=== PATIENT | male | born 1955 | race Two or more races ===

== ENCOUNTER 2017-02-12 20:37 | Emergency (ER) | payer MEDICAID ==
[2017-02-12 21:01] VITALS: BP 157/82; PULSE 86; RESP 20; TEMP 98; O2SAT 97
--- NOTE | 2017-02-12 21:04 | C.PDOC ---
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 Denies fever, chills, nausea or vomiting. Time Seen by Provider: 02/12/17 21:03 Chief Complaint (Nursing): Rib Injury History Per: Patient History/Exam Limitations: no limitations Onset/Duration Of Symptoms: Hrs Current Symptoms Are (Timing): Still Present Severity: Mild Pain Scale Rating Of: 3 Recent travel outside of the [place]: No Past Medical History Reviewed: Historical Data, Nursing Documentation, Vital Signs Vital Signs: Last Vital Signs Temp 98.0 F 02/12/17 20:57 Pulse 86 02/12/17 20:57 Resp 20 02/12/17 20:57 BP 157/82 H 02/12/17 20:57 Pulse Ox 97 02/12/17 21:21 - Medical History PMH: HTN, Malignancy (CLL) Surgical History: No Surg Hx - [facility] Procedures OTHER SKIN & SUBQ I D (06/22/13) Family History: States: No Known Family Hx - Social History Hx Tobacco Use: No Hx Alcohol Use: No Hx Substance Use: No - Immunization History Hx Tetanus Toxoid Vaccination: Yes Hx Influenza Vaccination: Yes Hx Pneumococcal Vaccination: Yes Review Of Systems Constitutional: Negative for: Fever, Chills Gastrointestinal: Negative for: Nausea, Vomiting Musculoskeletal: Positive for: Other (Right sided rib pain) Physical Exam - Physical Exam Appears: Non-toxic Skin: Warm, Dry Oral Mucosa: Moist Chest: Symmetrical, Tenderness (Right mid clavicular line, to palpation), No Ecchymosis, No Other (crepitus) Cardiovascular: Rhythm Regular, No Murmur Respiratory: No Rales, No Rhonchi, No Wheezing Gastrointestinal/Abdominal: Soft, No Tenderness Neurological/Psych: Oriented x3 ED Course And Treatment O2 Sat by Pulse Oximetry: 97 (Room air) Pulse Ox Interpretation: Normal - Radiology CXR: Interpreted by Me, Viewed By Me CXR Interpretation: No: Infiltrates, Fracture, Pnemothorax - Other Rad ribs X-Ray: Interpreted by Me Interpretation: no fx or dislocation Progress Note: X-ray of right ribs and chest ordered. Motrin administered. Medical Decision Making Medical Decision Making: Upon provider reevaluation patient is feeling better, is medically stable, and requires no further treatment in the ED at this time. Patient will be discharged home with Rx for naproxyn. Counseling was provided and all questions were answered regarding diagnosis and need for follow up with Dr Chiu. There is agreement to discharge plan. Return if symptoms persist or worsen. Disposition Counseled Patient/Family Regarding: Studies Performed, Diagnosis, Need For Followup, Rx Given - Disposition Referrals: Yoselyn Chiu MD [Staff Provider] - Disposition: HOME/ ROUTINE Disposition Time: 21:04 Condition: FAIR Prescriptions: Naproxen [Naprosyn] 1 tab PO BID PRN #25 tab PRN Reason: Pain Instructions: Thoracic Pain (ED), Chest Wall Pain (ED) - Clinical Impression Clinical Impression: Chest wall contusion - Scribe Statement The provider has reviewed the documentation as recorded by the Scribe Alex Madden All medical record entries made by the Scribe were at my direction and personally dictated by me. I have reviewed the chart and agree that the record accurately reflects my personal performance of the history, physical exam, medical decision making, and the department course for this patient. I have also personally directed, reviewed, and agree with the discharge instructions and disposition.
--- NOTE | 2017-02-13 09:01 | RAD ---
PROCEDURE: Chest and right ribs HISTORY: pain, hit ribs COMPARISON: April 23, 2016. TECHNIQUE: Frontal radiograph of the chest and multiple oblique radiographs of the right ribs were obtained. FINDINGS: RIGHT RIBS: No fracture or focal lesion visualized. LUNGS: Clear. PLEURA: No pneumothorax or pleural fluid. CARDIOVASCULAR: Normal sized heart. No pulmonary vascular congestion. OTHER FINDINGS: None. IMPRESSION: Unremarkable radiographs of the chest and right ribs. No right rib fracture.
--- NOTE | 2017-02-17 17:50 | CARD ---
APPROVED REPORT EKG Measurement Heart [id number] PA 170P68 [id number] <Conclusion> Normal sinus rhythm Normal ECG
== END 2017-02-12 22:02 | disposition home or self-care (01) ==
LOC: C.ER 20:37
DX: S20.211A Contusion of right front wall of thorax, initial encounter (principal); X50.9XXA Other and unspecified overexertion or strenuous movements or postures, initial encounter; Y92.810 Car as the place of occurrence of the external cause

== ENCOUNTER 2017-07-02 19:21 | Emergency (ER) | payer MEDICAID ==
[2017-07-02 19:52] VITALS: RESP 20; TEMP 97.9
[2017-07-02 20:47] LABS: BASO # 0.1 K/uL (0.0-0.2); BASO % 1.3 % (0.0-2.0); EOS # 0.3 K/uL (0.0-0.7); EOS % 3.5 % (0.0-4.0); HEMATOCRIT 35.2 % (35.0-51.0); LYMPH # 3.3 K/uL (1.0-4.3); LYMPH % 40.1 % (20.0-40.0); MEAN CELL VOLUME 88.7 fL (80.0-94.0); MEAN CORPUSCULAR HEMOGLOBIN 29.9 pg (27.0-31.0); MEAN CORPUSCULAR HGB CONC 33.7 g/dL (33.0-37.0); MONO # 0.6 K/uL (0.0-0.8); MONO % 7.8 % (0.0-10.0); NRBC % 0.1 % (0.0-2.0); RED CELL DISTRIBUTION WIDTH 14.6 % (11.5-14.5); WHITE BLOOD COUNT 8.2 K/uL (4.8-10.8)
[2017-07-02 20:56] LABS: CHLORIDE 96 mmol/L (98-107); POTASSIUM 4.2 mmol/L (3.6-5.2); SODIUM 131 mmol/L (132-148)
[2017-07-02 20:57] LABS: URINE BILIRUBIN NEGATIVE (NEGATIVE); URINE BLOOD NEGATIVE (NEGATIVE); URINE COLOR Colorless (YELLOW); URINE GLUCOSE (UA) 1+ mg/dL (Normal); URINE KETONE NEGATIVE (NEGATIVE); URINE LEUKOCYTE ESTERASE NEG Leu/uL (Negative); URINE PROTEIN NEGATIVE (NEGATIVE); URINE UROBILINOGEN NORMAL mg/dL (0.2-1.0)
[2017-07-02 20:58] LABS: GFR AFRICAN-AMERICAN > 60
[2017-07-02 20:59] LABS: ALB/GLOB RATIO 1.2 (1.0-2.1); ALKALINE PHOSPHATASE 64 U/L (38-126); ALT/SGPT 45 U/L (21-72); AST/SGOT 35 U/L (17-59); BILIRUBIN,TOTAL 0.5 mg/dL (0.2-1.3); BLOOD UREA NITROGEN 16 mg/dL (9-20); CALCIUM 9.5 mg/dl (8.6-10.4); CARBON DIOXIDE 25 mmol/L (22-30); GLUCOSE,RANDOM 196 mg/dL (75-110); TOTAL PROTEIN 8.1 g/dL (6.3-8.3)
[2017-07-02 21:25] VITALS: BP 145/73; PULSE 81; O2SAT 98
--- NOTE | 2017-07-02 21:33 | CT ---
EXAM: CT Head Without Intravenous Contrast EXAM DATE/TIME: 07/02/2017 8:02 PM CLINICAL HISTORY: 61 years old, male; Condition or disease; Headache; Additional info: R/O ich TECHNIQUE: Axial computed tomography images of the head/brain without intravenous contrast. All CT scans at this facility use one or more dose reduction techniques, viz.: automated exposure control; ma/kV adjustment per patient size (including targeted exams where dose is matched to indication; i.e. head); or iterative reconstruction technique. Coronal and sagittal reformatted images were created and reviewed. COMPARISON: There are no prior studies for comparison. FINDINGS: Brain: Ventricles are normal in size and configuration. There is no midline shift. There are no intra-axial or extra-axial mass lesions or areas of hemorrhage. There are no abnormal fluid collections. Person-white differentiation is maintained. Ventricles: See above. Bones: Cranial vault is intact. Soft tissues: unremarkable Sinuses: There is no acute sinusitis. Ears and mastoids: Middle ears and mastoids are unremarkable Orbits: Orbital contents are unremarkable. IMPRESSION: No acute intracranial abnormality, no bleed
--- NOTE | 2017-07-02 23:39 | C.PDOC ---
History Of Present Illness 61 year old male who presents to the ER with a complaint of dizziness since this morning. Patient has a Hx of leukemia and is on oral chemotherapy. Denies change in vision, chest pain, SOB, fever, or neck stiffness. Chief Complaint (Nursing): Dizziness/Lightheaded History Per: Patient History/Exam Limitations: no limitations Onset/Duration Of Symptoms: Hrs Current Symptoms Are (Timing): Still Present Activity At Onset Of Symptoms: Other (Not known) Seizure Or Post-ictal Symptoms: None Possible Causative Factor(s): Other (Not known) Fall Associated With With Symptoms: No Recent travel outside of the [place]: No Past Medical History Reviewed: Historical Data, Nursing Documentation, Vital Signs Vital Signs: Last Vital Signs Temp 97.9 F 07/02/17 19:49 Pulse 81 07/02/17 21:24 Resp 20 07/02/17 21:24 BP 145/73 07/02/17 21:24 Pulse Ox 98 07/02/17 23:44 - Medical History PMH: HTN, Malignancy (CLL) Surgical History: No Surg Hx - [facility] Procedures OTHER SKIN & SUBQ I D (06/22/13) Family History: States: Unknown Family Hx - Social History Hx Tobacco Use: No Hx Alcohol Use: No Hx Substance Use: No - Immunization History Hx Tetanus Toxoid Vaccination: Yes Hx Influenza Vaccination: Yes Hx Pneumococcal Vaccination: Yes Review Of Systems Constitutional: Negative for: Fever, Chills Eyes: Negative for: Vision Change Cardiovascular: Negative for: Chest Pain Respiratory: Negative for: Shortness of Breath Musculoskeletal: Negative for: Other (Neck stiffness) Physical Exam - Physical Exam Appears: Non-toxic, No Acute Distress Skin: Normal Color, Warm, Dry Head: Atraumatic, Normacephalic Eye(s): bilateral: Normal Inspection, PERRL, EOMI Oral Mucosa: Moist Neck: Normal, Supple Chest: Symmetrical, No Tenderness Cardiovascular: Rhythm Regular Respiratory: Normal Breath Sounds, No Rales, No Rhonchi, No Wheezing Gastrointestinal/Abdominal: Soft, No Tenderness Neurological/Psych: Oriented x3, Normal Speech, Normal Cognition, Normal Motor, Normal Sensation ED Course And Treatment - Laboratory Results Result Diagrams: 07/02/17 20:41 07/02/17 20:41 O2 Sat by Pulse Oximetry: 98 (Room air) Pulse Ox Interpretation: Normal Progress Note: CT head, blood work, CXR, and urinalysis ordered. Antivert and cozaar administered. Patient reports after the meclizine he feels better and states he will follow up with his PMD. Disposition - Disposition Referrals: Tenzin Romero, [Non-Staff] - Disposition: HOME/ ROUTINE Disposition Time: 21:44 Condition: IMPROVED Additional Instructions: Thank you for letting us take care of you today. Your provider was Dr. Lawson. You were treated for dizziness. The emergency medical care you received today was directed at your acute symptoms. If you were prescribed any medication, please fill it and take as directed. It may take several days for your symptoms to resolve. Return to the Emergency Department if your symptoms worsen, do not improve, or if you have any other problems. Please contact your doctor or call one of the physicians/clinics you have been referred to that are listed on the Patient Visit Information form that is included in your discharge packet. Bring any paperwork you were given at discharge with you along with any medications you are taking to your follow up visit. Our treatment cannot replace ongoing medical care by a primary care provider (PCP) outside of the emergency department. Thank you for allowing the [facility] team to be part of your care today. Follow up with your doctor tomorrow for a blood pressure check and further management. Prescriptions: Meclizine [Meclizine*] 25 mg PO Q6 PRN #20 tab PRN Reason: Dizziness Instructions: Vertigo (ED) Forms: [employer] (Japanese) - Clinical Impression Clinical Impression: Dizziness - Scribe Statement The provider has reviewed the documentation as recorded by the Scribchace Madden All medical record entries made by the Scribchace were at my direction and personally dictated by me. I have reviewed the chart and agree that the record accurately reflects my personal performance of the history, physical exam, medical decision making, and the department course for this patient. I have also personally directed, reviewed, and agree with the discharge instructions and disposition.
--- NOTE | 2017-07-03 08:38 | RAD ---
PROCEDURE: CHEST RADIOGRAPH, 1 VIEW HISTORY: r/o infiltrate COMPARISON: 02/12/2017 FINDINGS: LUNGS: Mild venous congestion. Patchy increased markings at the left lung base with trace left pleural effusion. PLEURA: As above. CARDIOVASCULAR: Cardiomegaly. OSSEOUS STRUCTURES: Degenerative changes in the spine and shoulders. VISUALIZED UPPER ABDOMEN: Normal. OTHER FINDINGS: None. IMPRESSION: Patchy increased markings at the left lung base which may represent underlying infiltrate. Associated trace left pleural effusion.
--- NOTE | 2017-07-03 19:15 | CARD ---
APPROVED REPORT EKG Measurement Heart [id number] [place] 194P62 [id number] <Conclusion> Normal sinus rhythm Normal ECG
== END 2017-07-02 22:25 | disposition home or self-care (01) ==
LOC: C.ER 19:21
DX: R42 Dizziness and giddiness (principal); I10 Essential (primary) hypertension

== ENCOUNTER 2017-10-09 13:56 | Emergency (ER) | payer MEDICAID ==
[2017-10-09 14:41] VITALS: RESP 18
--- NOTE | 2017-10-09 15:01 | C.PDOC ---
History Of Present Illness 62 y/o male with history of CLL presents to ED with complaints of sob, cough and "shivering" since yesterday. He saw when symptoms started who prescribed TAmiflu and instructed to come to ER if symptoms persist or worsen. Patient states he is on chemo daily. Pt took Tylenol with no improvement. Flu vaccine is up to date. Denies chest pain, loc, syncope, headache, or other associated symptoms. Time Seen by Provider: 10/09/17 14:47 Chief Complaint (Nursing): Fever History Per: Patient History/Exam Limitations: no limitations Onset/Duration Of Symptoms: Days Current Symptoms Are (Timing): Still Present Past Medical History Reviewed: Historical Data, Nursing Documentation, Vital Signs Vital Signs: Last Vital Signs Temp 98.1 F 10/09/17 18:19 Pulse 78 10/09/17 18:19 Resp 18 10/09/17 18:19 BP 130/78 10/09/17 18:19 Pulse Ox 97 10/09/17 18:19 - Medical History PMH: HTN, Malignancy (CLL) - [facility] Procedures OTHER SKIN & SUBQ I D (06/22/13) Family History: States: No Known Family Hx - Social History Hx Tobacco Use: No Hx Alcohol Use: No Hx Substance Use: No - Immunization History Hx Tetanus Toxoid Vaccination: Yes Hx Influenza Vaccination: Yes Hx Pneumococcal Vaccination: Yes Review Of Systems Constitutional: Positive for: Chills Respiratory: Positive for: Cough Gastrointestinal: Negative for: Nausea, Vomiting Skin: Negative for: Rash Neurological: Negative for: Weakness, Numbness Physical Exam - Physical Exam Appears: Non-toxic, No Acute Distress, Other (pt speaking in full sentences) Skin: Warm, Dry, No Rash Head: Atraumatic, Normacephalic, Swelling (facial swelling noted, patient reports secondary to chemo which hes had for "years") Eye(s): bilateral: Normal Inspection, EOMI Nose: Normal Oral Mucosa: Moist Throat: Normal, No Erythema, No Exudate, No Drooling Neck: Normal ROM, Supple Chest: Symmetrical Cardiovascular: Rhythm Regular Respiratory: Normal Breath Sounds, No Accessory Muscle Use, No Rales, No Rhonchi , No Wheezing Gastrointestinal/Abdominal: Soft, No Tenderness, No Guarding, No Rebound Extremity: Normal ROM, Capillary Refill (<2 seconds) Neurological/Psych: Oriented x3 ED Course And Treatment - Laboratory Results Result Diagrams: 10/09/17 15:54 10/09/17 15:54 ECG: Interpreted By Me, Viewed By Me ECG Rhythm: Sinus Rhythm O2 Sat by Pulse Oximetry: 96 (RA) Pulse Ox Interpretation: Normal Progress Note: On re evaluation patient states he feels better, states symptoms have improved and denies sob, chest pain, palpitations. Patient was offered admission for further evaluation and refused states he feels better and is asymptomatic. Discussed with Dr. Chiu and agrees with plan of discharge and advised patient continue Tamaflu given and will follow up with patient outpatient. Case discussed with Dr Gomez, agreed upon plan and discharge. Disposition - Disposition Referrals: Yoselyn Chiu MD [Staff Provider] - Disposition: HOME/ ROUTINE Disposition Time: 18:02 Condition: STABLE Additional Instructions: Follow up with your primary medical doctor or clinic in 2-5 days for further evaluation. Return to the emergency department at any time if symptoms persist or worsen. Instructions: Viral Syndrome (ED) Forms: [employer] (Swiss) - Clinical Impression Clinical Impression: URI (upper respiratory infection), Influenza-like illness - PA / VP RESEARCH / Resident Statement MD/DO has reviewed & agrees with the documentation as recorded. - Scribe Statement The provider has reviewed the documentation as recorded by the Scribchace Crandall All medical record entries made by the Scribe were at my direction and personally dictated by me. I have reviewed the chart and agree that the record accurately reflects my personal performance of the history, physical exam, medical decision making, and the department course for this patient. I have also personally directed, reviewed, and agree with the discharge instructions and disposition.
[2017-10-09] MEDS ORDERED: Albuterol 0.083% Inhal Sol (2.5 mg/3 mL) UD IH STA (15:19)
[2017-10-09 15:58] LABS: BASO # 0.1 K/uL (0.0-0.2); BASO % 0.8 % (0.0-2.0); EOS # 0.2 K/uL (0.0-0.7); EOS % 2.7 % (0.0-4.0); HEMOGLOBIN 10.9 g/dL (12.0-18.0); LYMPH # 3.7 K/uL (1.0-4.3); LYMPH % 40.3 % (20.0-40.0); MEAN CELL VOLUME 88.9 fL (80.0-94.0); MEAN CORPUSCULAR HEMOGLOBIN 30.3 pg (27.0-31.0); MEAN CORPUSCULAR HGB CONC 34.1 g/dL (33.0-37.0); MONO # 0.5 K/uL (0.0-0.8); MONO % 5.8 % (0.0-10.0); NEUT # 4.6 K/uL (1.8-7.0); NEUT % 50.4 % (50.0-75.0); NRBC % 0.1 % (0.0-2.0); RBC 3.6 Mil/uL (4.40-5.90); RED CELL DISTRIBUTION WIDTH 14.8 % (11.5-14.5); WHITE BLOOD COUNT 9.1 K/uL (4.8-10.8)
[2017-10-09] MEDS ORDERED: Albuterol 0.083% Inhal Sol (2.5 mg/3 mL) UD ONE (16:02)
[2017-10-09 16:06] LABS: INR 1.2; PROTHROMBIN TIME 13.8 SECONDS (9.7-12.2)
[2017-10-09 16:20] LABS: ALB/GLOB RATIO 1.2 (1.0-2.1); ALBUMIN 4.1 g/dL (3.5-5.0); ALT/SGPT 38 U/L (21-72); AST/SGOT 41 U/L (17-59); BLOOD UREA NITROGEN 23 mg/dL (9-20); CALCIUM 8.8 mg/dl (8.6-10.4); GFR AFRICAN-AMERICAN > 60; GFR NON-AFRICAN AMERICAN 52
--- NOTE | 2017-10-09 16:22 | RAD ---
HISTORY: SOB COMPARISON: 07/02/2017 TECHNIQUE: Chest PA and lateral FINDINGS: LUNGS: Central pulmonary venous congestion and coarse bilateral symmetrical interstitial lung marking prominence suggested. Findings appear similar. Minimal left patchy infiltrate ring left inferolateral pleural effusion/pleural thickening - renoted. PLEURA: Left inferolateral pleural effusion/thickening probably slightly increased. Contiguous patchy infiltrate and/or atelectasis here renoted. No pneumothorax CARDIOVASCULAR: Mild cardiomegaly. Central pulmonary venous congestion suggested OSSEOUS STRUCTURES: No significant abnormalities. VISUALIZED UPPER ABDOMEN: Normal. OTHER FINDINGS: None. IMPRESSION: Persistent left inferolateral pleural effusion/thickening with patchy minimal infiltrate and/or atelectasis persisting here as well. Mild cardiomegaly with central pulmonary venous congestion-similar. Concomitant chronic interstitial lung disease per coarse prominent interstitial lung markings - also in needs to be considered
[2017-10-09 16:26] LABS: B-TYPE NATRIURETIC PEPTIDE 177 pg/mL (0-900); CK-MB 1.03 ng/mL (0.0-3.38)
[2017-10-09] MEDS ORDERED: Iodixanol 320 MG/ML 100 ML BOTTLE IV ONE (17:23)
--- NOTE | 2017-10-09 17:50 | CT ---
PROCEDURE: CT Chest with contrast (Pulmonary Angiogram) HISTORY: Shortness of breath. COMPARISON: None available. TECHNIQUE: Axial computed tomography images were obtained of the chest in the pulmonary arterial phase of enhancement. Coronal and sagittal reformatted images were created and reviewed. Intravenous contrast dose: 100 cc Visipaque 320 Mean Hounsfield unit values in the main pulmonary artery: 157.12 Radiation dose: Total exam DLP = 531.55 mGy-cm. This CT exam was performed using one or more of the following dose reduction techniques: Automated exposure control, adjustment of the mA and/or kV according to patient size, and/or use of iterative reconstruction technique. FINDINGS: PULMONARY ARTERIES: No major/ central pulmonary emboli. Nondiagnostic assessment of qualitatively and quantitatively beyond segmental branches. AORTA: No acute findings. No thoracic aortic aneurysm. LUNGS: Prominent pulmonary markings compatible with lower airways disease, bronchitis. No discrete infiltrates PLEURAL SPACES: Trace left pleural effusion last HEART: Unremarkable. No cardiomegaly. No significant pericardial effusion. LYMPH NODES: No lymphadenopathy. BONES, CHEST WALL: Unremarkable. No fracture or destructive lesion OTHER FINDINGS: Unremarkable. IMPRESSION: No large semi of central pulmonary emboli. Limitations of the current examination: Nondiagnostic assessment beyond the segmental branches. Additional benign and/or incidental findings described above.
[2017-10-09 18:20] VITALS: BP 130/78; PULSE 78; TEMP 98.1
--- NOTE | 2017-10-10 16:07 | CARD ---
APPROVED REPORT EKG Measurement Heart [id number] [place] 180P52 [id number] <Conclusion> Normal sinus rhythm Normal ECG
[2017-10-13 22:36] VITALS: O2SAT 96
== END 2017-10-09 18:23 | disposition home or self-care (01) ==
LOC: C.ER 13:56
DX: J11.1 Influenza due to unidentified influenza virus with other respiratory manifestations (principal); I10 Essential (primary) hypertension; Z85.6 Personal history of leukemia
CPT/HCPCS: 71046; 71275; 80053; 82550; 82553; 83880; 84484; 85025; 85378; 85610; 85730; 87804; 93005; 94150; 94640; 99285; Q9967

== ENCOUNTER 2018-01-15 02:13 | Emergency (ER) | payer MEDICAID ==
--- NOTE | 2018-01-15 02:47 | C.PDOC ---
History Of Present Illness Patient presents to the ER stating he felt like his blood pressure was high. Patient took his blood pressure at home and noticed is was 203; he also reports his doctor changed his blood pressure medications last month. Patient notes he has occasional palpitations, however, denies palpitations at this time, chest pain, or SOB. Time Seen by Provider: 01/15/18 02:46 Chief Complaint (Nursing): High Blood Pressure History Per: Patient History/Exam Limitations: no limitations Onset/Duration Of Symptoms: Hrs Current Symptoms Are (Timing): Still Present Associated Symptoms: denies: Chest Pain, Dyspnea, Dizziness, Blurred Vision, Focal Weakness, Headache Quality Of Symptoms: Asymptomatic Severity: Mild Pain Scale Rating Of: 3 Exacerbating Factor(s): Pos: None Recent travel outside of the [place]: No Past Medical History Reviewed: Historical Data, Nursing Documentation, Vital Signs Vital Signs: Last Vital Signs Temp 97.8 F 01/15/18 02:24 Pulse 98 H 01/15/18 02:24 Resp 16 01/15/18 02:24 BP 206/94 H 01/15/18 02:34 Pulse Ox 99 01/15/18 03:44 - Medical History PMH: HTN, Malignancy (CLL) - [facility] Procedures OTHER SKIN & SUBQ I D (06/22/13) Family History: States: No Known Family Hx - Social History Hx Tobacco Use: No Hx Alcohol Use: No Hx Substance Use: No - Immunization History Hx Tetanus Toxoid Vaccination: Yes Hx Influenza Vaccination: Yes Hx Pneumococcal Vaccination: Yes Review Of Systems Constitutional: Negative for: Fever, Chills Cardiovascular: Negative for: Chest Pain, Palpitations Respiratory: Negative for: Shortness of Breath Gastrointestinal: Negative for: Nausea, Vomiting Physical Exam - Physical Exam Appears: Non-toxic Skin: Warm, Dry Head: Normacephalic Oral Mucosa: Moist Chest: Symmetrical, No Tenderness Cardiovascular: Rhythm Regular Respiratory: No Rales, No Rhonchi, No Wheezing Gastrointestinal/Abdominal: Soft, No Tenderness, Other (Obese) Neurological/Psych: Oriented x3 ED Course And Treatment - Laboratory Results Result Diagrams: 01/15/18 03:27 01/15/18 03:27 ECG: Interpreted By Me, Viewed By Me ECG Rhythm: Sinus Rhythm (97), Nonspecific Changes O2 Sat by Pulse Oximetry: 99 Pulse Ox Interpretation: Normal - Radiology CXR: Interpreted by Me, Viewed By Me CXR Interpretation: Yes: Cardiomegaly. No: Infiltrates, Fracture, Pnemothorax Progress Note: EKG, blood work, CXR, and urinalysis ordered. Reevaluation Time: 04:36 Reassessment Condition: Improved Disposition Counseled Patient/Family Regarding: Studies Performed, Diagnosis, Need For Followup - Disposition Referrals: Yoselyn Chiu MD [Staff Provider] - Disposition: HOME/ ROUTINE Disposition Time: 02:47 Condition: FAIR Instructions: High Blood Pressure (DC), Palpitations (DC) Forms: [employer] (Estonian) - Clinical Impression Clinical Impression: Hypertension, Palpitations - Scribe Statement The provider has reviewed the documentation as recorded by the Scribe Alex Madden All medical record entries made by the Scribe were at my direction and personally dictated by me. I have reviewed the chart and agree that the record accurately reflects my personal performance of the history, physical exam, medical decision making, and the department course for this patient. I have also personally directed, reviewed, and agree with the discharge instructions and disposition.
[2018-01-15 03:29] LABS: BASO # 0.1 K/uL (0.0-0.2); BASO % 1.1 % (0.0-2.0); EOS # 0.3 K/uL (0.0-0.7); EOS % 3.7 % (0.0-4.0); HEMOGLOBIN 11.3 g/dL (12.0-18.0); LYMPH # 3.8 K/uL (1.0-4.3); MEAN CELL VOLUME 89.8 fL (80.0-94.0); MEAN CORPUSCULAR HEMOGLOBIN 31.4 pg (27.0-31.0); MEAN CORPUSCULAR HGB CONC 34.9 g/dL (33.0-37.0); MONO # 0.6 K/uL (0.0-0.8); MONO % 6.8 % (0.0-10.0); NEUT % 45.4 % (50.0-75.0); RBC 3.6 Mil/uL (4.40-5.90); WHITE BLOOD COUNT 8.9 K/uL (4.8-10.8)
[2018-01-15 03:38] LABS: INR 1.2; PROTHROMBIN TIME 13.6 SECONDS (9.7-12.2)
[2018-01-15 03:41] LABS: ALB/GLOB RATIO 1.1 (1.0-2.1); ALT/SGPT 33 U/L (21-72); AST/SGOT 40 U/L (17-59); BLOOD UREA NITROGEN 20 mg/dL (9-20); CALCIUM 9.3 mg/dl (8.6-10.4); GFR AFRICAN-AMERICAN > 60; GFR NON-AFRICAN AMERICAN 56
[2018-01-15 03:45] LABS: URINE BILIRUBIN NEGATIVE (NEGATIVE); URINE BLOOD NEGATIVE (NEGATIVE); URINE CLARITY Clear (Clear); URINE COLOR Straw (YELLOW); URINE GLUCOSE (UA) NORMAL (Normal); URINE LEUKOCYTE ESTERASE NEG Leu/uL (Negative); URINE PROTEIN NEGATIVE (NEGATIVE); URINE UROBILINOGEN NORMAL mg/dL (0.2-1.0)
[2018-01-15 04:51] VITALS: BP 146/58; PULSE 73; RESP 20; TEMP 97.3; O2SAT 100
--- NOTE | 2018-01-15 10:09 | RAD ---
HISTORY: chest pain COMPARISON: Chest x-ray 10/09/2017 TECHNIQUE: Chest one view . FINDINGS: LUNGS: Mild pulmonary vascular congestion. PLEURA: No pleural effusion is identified. CARDIOVASCULAR: Heart size is mildly enlarged. OSSEOUS STRUCTURES: Degenerative changes noted of the spine. VISUALIZED UPPER ABDOMEN: Unremarkable. OTHER FINDINGS: None. IMPRESSION: Mild pulmonary vascular congestion. Mild cardiomegaly.
--- NOTE | 2018-01-16 12:56 | CARD ---
APPROVED REPORT EKG Measurement Heart [id number] 186P44 [id number] <Conclusion> Normal sinus rhythm Normal ECG
== END 2018-01-15 04:51 | disposition home or self-care (01) ==
LOC: C.ER 02:13
DX: I10 Essential (primary) hypertension (principal); R00.2 Palpitations

== ENCOUNTER 2018-01-24 16:15 | Inpatient (IN) | payer MEDICAID ==
[2018-01-24 16:22] VITALS: BMI 40.1
--- NOTE | 2018-01-24 17:04 | C.PDOC ---
History Of Present Illness 62 year old male, whose PMHx includes CLL and HTN, presents to the ED for evaluation of shortness of breath which has been worsening over the past 2 days. Patient notes he initially experienced shortness of breath only when walking, but now experiences symptoms at rest. Patient states his CLL medication sometimes causes edema in his lungs, but symptoms have never been this bad. Patient contacted his Body Shop Manager, Dr. Espinoza, who advised him to present to the ED for further evaluation. Patient denies fever, chills, cough, chest pain, extremity numbness/weakness. Time Seen by Provider: 01/24/18 16:34 Chief Complaint (Nursing): Shortness Of Breath History Per: Patient History/Exam Limitations: no limitations Onset/Duration Of Symptoms: Days (2) Current Symptoms Are (Timing): Worse Quality: denies: "Pain" Exacerbating Factor(s): Exertion Current Respiratory Medications: See Home Med List Associated Symptoms: denies: Fever, Chills, Chest Pain, Bloody Cough, Productive Cough Additional History Per: Patient Past Medical History Reviewed: Historical Data, Nursing Documentation, Vital Signs Vital Signs: Last Vital Signs Temp 98.3 F 01/25/18 16:00 Pulse 77 01/25/18 16:20 Resp 20 01/25/18 16:00 BP 99/58 L 01/25/18 17:41 Pulse Ox 94 L 01/25/18 16:00 - Medical History PMH: HTN, Malignancy (CLL) Denies: Chronic Kidney Disease Surgical History: No Surg Hx - [facility] Procedures OTHER SKIN & SUBQ I D (06/22/13) Family History: States: Unknown Family Hx - Social History Hx Tobacco Use: No Hx Alcohol Use: No Hx Substance Use: No - Immunization History Hx Tetanus Toxoid Vaccination: Yes Hx Influenza Vaccination: Yes (2017) Hx Pneumococcal Vaccination: No Review Of Systems Constitutional: Negative for: Fever, Chills Cardiovascular: Negative for: Chest Pain Respiratory: Positive for: Shortness of Breath, SOB with Excertion. Negative for: Cough Neurological: Negative for: Weakness, Numbness Physical Exam - Physical Exam Appears: Non-toxic, No Acute Distress Skin: Normal Color, Warm, Dry Head: Atraumatic, Normacephalic Eye(s): bilateral: Normal Inspection Oral Mucosa: Moist Neck: Supple Chest: Symmetrical, No Deformity, No Tenderness Cardiovascular: Rhythm Regular, No Murmur Respiratory: Decreased Breath Sounds (at bilateral bases ), No Rales, No Rhonchi , Wheezing (mild, right-sided, expiratory ) Gastrointestinal/Abdominal: Soft, No Tenderness, No Distention, No Guarding, No Rebound Extremity: Normal ROM, Capillary Refill (less than 2 seconds ), No Other ( pitting edema ) Neurological/Psych: Oriented x3, Normal Speech, Normal Cognition ED Course And Treatment - Laboratory Results Result Diagrams: 01/24/18 17:02 01/24/18 17:02 ECG: Interpreted By Me, Viewed By Me ECG Rhythm: Sinus Rhythm Interpretation Of ECG: Normal Sinus Rhythm at rate 94bpm. Rate From EC O2 Sat by Pulse Oximetry: 97 Medical Decision Making Medical Decision Making: ro pe, pna, chf. Progress: Bloodwork, urinalysis, CXR, and EKG ordered and reviewed. dr espinoza requests dr ferro admission. pmd choudary paged, no callba ck. Disposition - Disposition Disposition: HOSPITALIZED Disposition Time: 01:00 Condition: STABLE - Clinical Impression Clinical Impression: Pneumonia, Elevated d-dimer - Scribe Statement The provider has reviewed the documentation as recorded by the Scribe (Yasmeen Abad) Provider Attestation: All medical record entries made by the Scribe were at my direction and personally dictated by me. I have reviewed the chart and agree that the record accurately reflects my personal performance of the history, physical exam, medical decision making, and the department course for this patient. I have also personally directed, reviewed, and agree with the discharge instructions and disposition. Decision To Admit - Pt Status Changed To: Hospital Disposition Of: Inpatient - Admit Certification Admit to Inpatient:: After my assessment, the patient will require hospitalization for at least two midnights. This is because of the severity of symptoms shown, intensity of services needed, and/or the medical risk in this patient being treated as an outpatient. - InPatient: Physician Admission Certification: I certify that this patient requires 2 or more midnights of care for the following reason:: needs iv antibiotics, v/q scan - . Bed Request Type: Regular Admitting Physician: Salvatore Ferro Patient Diagnosis: Pneumonia, Elevated d-dimer
[2018-01-24 17:16] LABS: BASO # 0.1 K/uL (0.0-0.2); BASO % 0.9 % (0.0-2.0); EOS # 0.1 K/uL (0.0-0.7); EOS % 1.2 % (0.0-4.0); LYMPH # 5.4 K/uL (1.0-4.3); LYMPH % 45.1 % (20.0-40.0); MEAN CORPUSCULAR HEMOGLOBIN 30.2 pg (27.0-31.0); MEAN CORPUSCULAR HGB CONC 33.5 g/dL (33.0-37.0); MEAN PLATELET VOLUME 8.6 fL (7.2-11.7); MONO # 0.6 K/uL (0.0-0.8); MONO % 4.8 % (0.0-10.0); NEUT # 5.7 K/uL (1.8-7.0); NRBC % 0.1 % (0.0-2.0); RBC 3.66 Mil/uL (4.40-5.90); RED CELL DISTRIBUTION WIDTH 15.6 % (11.5-14.5)
[2018-01-24 17:23] LABS: INR 1.2; PROTHROMBIN TIME 13.4 SECONDS (9.7-12.2)
[2018-01-24 17:43] LABS: B-TYPE NATRIURETIC PEPTIDE 326 pg/mL (0-900)
[2018-01-24 17:47] LABS: ALB/GLOB RATIO 1.2 (1.0-2.1); ALBUMIN 4.4 g/dL (3.5-5.0); ALT/SGPT 68 U/L (21-72); AST/SGOT 50 U/L (17-59); BLOOD UREA NITROGEN 20 mg/dL (9-20); CALCIUM 9.8 mg/dl (8.6-10.4); GFR AFRICAN-AMERICAN > 60; GFR NON-AFRICAN AMERICAN 52
--- NOTE | 2018-01-24 18:14 | RAD ---
PROCEDURE: CHEST RADIOGRAPH, 1 VIEW HISTORY: chest pain COMPARISON: Bold 01/15/2018 FINDINGS: LUNGS: Clear. PLEURA: No pneumothorax or pleural fluid seen. CARDIOVASCULAR: Cardiomegaly. No evidence of acute, significant cardiovascular disease. OSSEOUS STRUCTURES: No significant abnormalities. VISUALIZED UPPER ABDOMEN: Normal. OTHER FINDINGS: None. IMPRESSION: No active disease. No acute/significant interval changes.
[2018-01-24] MEDS ORDERED: Iodixanol 320 MG/ML 100 ML BOTTLE IV ONE (18:39)
[2018-01-24 19:10] LABS: URINE BILIRUBIN NEGATIVE (NEGATIVE); URINE BLOOD NEGATIVE (NEGATIVE); URINE CLARITY Clear (Clear); URINE COLOR Yellow (YELLOW); URINE GLUCOSE (UA) 1+ mg/dL (Normal); URINE LEUKOCYTE ESTERASE NEG Leu/uL (Negative); URINE PROTEIN NEGATIVE (NEGATIVE); URINE UROBILINOGEN NORMAL mg/dL (0.2-1.0)
[2018-01-24] MEDS ORDERED: cefTRIAXone IV 1 gm in Dextros 50 ML IVPB ONE ×2 (20:53→20:59)
[2018-01-24] MEDS ORDERED: Azithromycin 500 MG in Sodium Chloride 0.9% 250 ML IVPB STA (20:53)
[2018-01-24 22:51] VITALS: RESP 20
[2018-01-25] MEDS: Metoprolol Succinate 50 mg XL Tab PO SCH ×2 (00:17→10:21)
[2018-01-25 06:35] LABS: IRON 58 ug/dL (49-181)
[2018-01-25 06:40] LABS: % IRON SATURATION 16 (20-55); TOTAL IRON BINDING CAPACITY 360 ug/dL (250-450)
[2018-01-25] MEDS: (Novolog) Insulin Aspart, Recombinant 100 u/ml 10 ml vial SC SCH ×4 (08:05→22:30)
--- NOTE | 2018-01-25 08:43 | CT ---
PROCEDURE: CT Chest with contrast (Pulmonary Angiogram) HISTORY: sob elevated dimer COMPARISON: None available. TECHNIQUE: Axial computed tomography images were obtained of the chest in the pulmonary arterial phase of enhancement. Coronal and sagittal reformatted images were created and reviewed. Intravenous contrast dose: 100 cc Visipaque 320 Radiation dose: Total exam DLP = 700.24 mGy-cm. This CT exam was performed using one or more of the following dose reduction techniques: Automated exposure control, adjustment of the mA and/or kV according to patient size, and/or use of iterative reconstruction technique. FINDINGS: PULMONARY ARTERIES: Evaluation for pulmonary embolism is limited due to poor timing of the scan relative to the contrast bolus and also due to patient body habitus. There is no central pulmonary embolism in the main, lobar or segmental pulmonary artery branches. Subsegmental pulmonary artery branches are suboptimally evaluated. AORTA: No acute findings. No thoracic aortic aneurysm. LUNGS: No pulmonary infiltrate. There is some bronchial wall thickening seen in both lower lobes, nonspecific. No small airways disease. No endobronchial mass. PLEURAL SPACES: Minimal bilateral pleural effusion. No pneumothorax. HEART: Normal heart size. Trace pericardial effusion. LYMPH NODES: No lymphadenopathy. BONES, CHEST WALL: Unremarkable. No fracture or destructive lesion OTHER FINDINGS: Unremarkable. IMPRESSION: No evidence of pulmonary embolism. Examination limited for evaluation of subsegmental pulmonary artery branches. See above. Minimal bilateral pleural effusion. No infiltrate. Nonspecific bronchial wall thickening in both lower lobes. Trace pericardial effusion.
--- NOTE | 2018-01-25 09:27 | CP.PCM.HP ---
History of Present Illness - History of Present Illness History of Present Illness: CC: shortness of breath HPI: 62 year old male, whose PMHx includes diabetes, hyperlipidemia, AMl and CLL on chemotherapy and HTN, presents to the ED for evaluation of shortness of breath which has been worsening over the past 2 days. Patient notes he initially experienced shortness of breath only when walking, but now experiences symptoms at rest. Patient states his CLL medication sometimes causes edema in his lungs, but symptoms have never been this bad. Patient contacted his Switchboard Operator Helper, Patient denies fever, chills, cough, chest pain, extremity numbness/weakness. Present on Admission - Present on Admission Any Indicators Present on Admission: Yes Review of Systems - Review of Systems Systems not reviewed;Unavailable: Acuity of Condition, Respiratory Distress - Constitutional Constitutional: Fatigue, Lethargy, Malaise, Weakness - EENT Eyes: absent: As Per HPI, Blind Spots, Blurred Vision, Change in Vision, Decreased Night Vision, Diplopia, Discharge, Dry Eye, Exophthalmos, Floaters, Irritation, Itchy Eyes, Loss of Peripheral Vision, Pain, Photophobia, Requires Corrective Lenses, Sees Flashes, Spots in Vision, Tunnel Vision, Other Visual Disturbances, Loss of Vision, Other Nose/Mouth/Throat: absent: As Per HPI, Epistaxis, Nasal Congestion, Nasal Discharge, Nasal Obstruction, Nasal Trauma, Nose Pain, Post Nasal Drip, Sinus Pain, Sinus Pressure, Bleeding Gums, Change in Voice, Dental Pain, Dry Mouth, Dysphagia, Halitosis, Hoarsness, Lip Swelling, Mouth Lesions, Mouth Pain, Odynophagia, Sore Throat, Throat Swelling, Tongue Swelling, Facial Pain, Neck Pain, Neck Mass, Other - Cardiovascular Cardiovascular: Chest Pain, Dyspnea, Dyspnea on Exertion - Respiratory Respiratory: Dyspnea, Dyspnea on Exertion - Gastrointestinal Gastrointestinal: absent: As Per HPI, Abdominal Pain, Belching, Bloating, Change in Bowel Habits, Change in Stool Character, Coffee Ground Emesis, Constipation, Cramping, Diarrhea, Dyspepsia, Dysphagia, Early Satiety, Excessive Flatus, Fecal Incontinence, Heartburn, Hematemesis, Hematochezia, Loose Stools, Melena, Nausea, Odynophagia, Temesmus, Vomiting, Other - Genitourinary Genitourinary: absent: As Per HPI, Change in Urinary Stream, Difficulty Urinating, Dysuria, Flank Pain, Hematuria, Pyuria, Nocturia, Urinary Incontinence, Urinary Frequency, Urinary Hesitance, Urinary Urgency, Voiding Freq/Small Amts, Freq UTI, Hx Renal/Bladder Calculi, Hx /Renal Surgery, Bladder Distension, Other Past Patient History - Past Medical History & Family History Past Medical History?: Yes - Past Social History Smoking Status: Never Smoked - CARDIAC Hx Hypertension: Yes - PULMONARY Hx Respiratory Disorders: No - NEUROLOGICAL Hx Neurological Disorder: No - HEENT Hx HEENT Problems: No - RENAL Hx Chronic Kidney Disease: No - ENDOCRINE/METABOLIC Hx Diabetes Mellitus Type 2: Yes - HEMATOLOGICAL/ONCOLOGICAL Hx Blood Disorders: Yes (CML ) Hx Leukemia: Yes - INTEGUMENTARY Hx Dermatological Problems: No - MUSCULOSKELETAL/RHEUMATOLOGICAL Hx Falls: No - GASTROINTESTINAL Other/Comment: hx of endoscopy - GENITOURINARY/GYNECOLOGICAL Hx Genitourinary Disorders: No - PSYCHIATRIC Hx Substance Use: No - SURGICAL HISTORY Hx Surgeries: No Other/Comment: no further information given by patient - ANESTHESIA Hx Anesthesia: Yes Hx Anesthesia Reactions: No Hx Malignant Hyperthermia: No Meds Home Medications: Home Medication List Medication Instructions Recorded Confirmed Type Azithromycin 250 mg PO DAILY 3 Days tab 01/26/18 Rx Furosemide [Lasix] 40 mg PO DAILY 30 Days tab 01/26/18 Rx guaiFENesin/Dextromethorphan 10 ml PO Q6H 10 Days udc 01/26/18 Rx [guaiFENesin-DM] hydrALAZINE [Apresoline] 25 mg PO BID 60 Days tab 01/26/18 Rx Allergies/Adverse Reactions: Allergies Allergy/AdvReac Type Severity Reaction Status Date / Time No Known Allergies Allergy Verified 01/24/18 16:21 Physical Exam - Constitutional Additional comments: in resp distress mild - Head Exam Head Exam: ATRAUMATIC, NORMAL INSPECTION, NORMOCEPHALIC - Eye Exam Eye Exam: EOMI, Normal appearance, PERRL Pupil Exam: NORMAL ACCOMODATION, PERRL - Respiratory Exam Respiratory Exam: Decreased Breath Sounds, Rales Additional comments: rales in 1/3rd of lung feilds - Cardiovascular Exam Cardiovascular Exam: REGULAR RHYTHM - GI/Abdominal Exam GI & Abdominal Exam: Normal Bowel Sounds, Soft. absent: Tenderness - Extremities Exam Extremities exam: Positive for: pedal edema Results - Vital Signs Recent Vital Signs: Last Vital Signs Temp 98.2 F 01/25/18 08:44 Pulse 79 01/25/18 08:44 Resp 20 01/25/18 08:44 BP 90/47 L 01/25/18 08:44 Pulse Ox 95 01/25/18 08:44 - Labs Result Diagrams: 01/26/18 07:46 01/26/18 07:46 Labs: Laboratory Results - last 24 hr 01/24/18 01/24/18 01/24/18 17:02 17:02 17:02 WBC 12.0 H RBC 3.66 L Hgb 11.0 L Hct 33.0 L MCV 90.0 MCH 30.2 MCHC 33.5 RDW 15.6 H Plt Count 335 MPV 8.6 Neut % (Auto) 48.0 L Lymph % (Auto) 45.1 H Delta % (Auto) 4.8 Eos % (Auto) 1.2 Baso % (Auto) 0.9 Neut # (Auto) 5.7 Lymph # (Auto) 5.4 H [place] # (Auto) 0.6 Eos # (Auto) 0.1 Baso # (Auto) 0.1 PT 13.4 H INR 1.2 APTT 34 D-Dimer, Quantitative 594 H Sodium 137 Potassium 4.3 Chloride 102 Carbon Dioxide 24 Anion Gap 16 BUN 20 Creatinine 1.4 Est GFR ( Amer) > 60 Est GFR (Non-Af Amer) 52 POC Glucose (mg/dL) Random Glucose 187 H Calcium 9.8 Iron TIBC % Saturation Total Bilirubin 0.8 AST 50 ALT 68 Alkaline Phosphatase 76 Troponin I < 0.0120 NT-Pro-B Natriuret Pep 326 Total Protein 8.0 Albumin 4.4 Globulin 3.7 Albumin/Globulin Ratio 1.2 Urine Color Urine Clarity Urine pH Ur Specific [place] Urine Protein Urine Glucose (UA) Urine Ketones Urine Blood Urine Nitrate Urine Bilirubin Urine Urobilinogen Ur Leukocyte Esterase Urine WBC (Auto) 01/24/18 01/25/18 01/25/18 19:01 06:10 06:46 WBC RBC Hgb Hct MCV MCH MCHC RDW Plt Count MPV Neut % (Auto) Lymph % (Auto) Delta % (Auto) Eos % (Auto) Baso % (Auto) Neut # (Auto) Lymph # (Auto) Delta # (Auto) Eos # (Auto) Baso # (Auto) PT INR APTT D-Dimer, Quantitative Sodium Potassium Chloride Carbon Dioxide Anion Gap BUN Creatinine Est GFR ( Amer) Est GFR (Non-Af Amer) POC Glucose (mg/dL) 117 H Random Glucose Calcium Iron 58 TIBC 360 % Saturation 16 L Total Bilirubin AST ALT Alkaline Phosphatase Troponin I NT-Pro-B Natriuret Pep Total Protein Albumin Globulin Albumin/Globulin Ratio Urine Color Yellow Urine Clarity Clear Urine pH 6.0 Ur Specific [place] 1.019 Urine Protein Negative Urine Glucose (UA) 1+ H Urine Ketones Negative Urine Blood Negative Urine Nitrate Negative Urine Bilirubin Negative Urine Urobilinogen Normal Ur Leukocyte Esterase Neg Urine WBC (Auto) < 1 Assessment & Plan (1) CHF exacerbation Status: Acute (2) CLL (chronic lymphocytic leukemia) Assessment and Plan: on chemotherapy Status: Acute (3) Hypertension Status: Acute (4) Essential (primary) hypertension Status: Chronic Priority: Medium
[2018-01-25] MEDS ORDERED: Home Med 1 UNIT (Sitagliptin Phos/Metformin Hcl [Janumet 50-1,000 Mg Tablet] 1 EACH) PO SCH (10:00)
[2018-01-25] MEDS ORDERED: Home Med 1 UNIT (Hydralazine Hcl [Hydralazine Hcl] 100 MG) PO SCH (10:00)
[2018-01-25] MEDS ORDERED: Metoprolol Succinate 50 mg XL Tab PO SCH (10:00)
[2018-01-25] MEDS: Azithromycin 500 MG in Sodium Chloride 0.9% 250 ML IVPB SCH (12:40)
[2018-01-25] MEDS: Potassium Chloride 20 mEq ER Tab PO SCH (13:30)
--- NOTE | 2018-01-25 16:00 | CP.PCM.CON ---
History of Present Illness - History of Present Illness History of Present Illness: Initial Nephrology Consultation: Assessment: Stable Fluid retention likel due to medication side effect (sprycel). normal serum alb and no proteinuria on dipstick argues against nephrotic syndrome/renal cause possible pneumonia CKD stage 3 (stable), without proteinuria DM, HTN, MARGOTH on CPAP, morbid obesity Leukemia in remission Plan No acute need for renal replacement therapy at this time. Hypertension control with meds as ordered. Patient not on ACEI/ARB as BP on low side and no proteinuria Monitor Input/Output, daily weights and renal function with basic metabolic panel supplements lytes as needed continue with lasix as per cardiology. hold metformin 48 hrs post cath pt advised to loose weight. oral salt and fluid restriction Check urine spot protein/creatinine and albumin/creatinine ratio, renal sonogram. check SPEP/serum RASHID and free light chain assay. vit D and PTH levels Dose meds/antibiotics for reduced GFR. Avoid fleets enema/magnesium based laxatives. Avoid nephrotoxins/NSAIDs/ iodinated contrast (unless needed emergently) Glycemic control Further work up/management as per primary team Thanks for allowing me to participate in care of your patient. Will follow patient with you. Please call if any Qs. d/w team. Dr Clemente Ortiz Office: [phone] Chief Complaint; shortness of breath reason for consult: edema and renal insuff HPI: Pt is a 62 M with hx of diabetes Mellitus (5-6 years), hypertension (5-6 years) morbid obesity, MARGOTH on CPAP, leukemia in remission on Sprycel (for last 7 -8 years) presented with worsening SOB over last 1 week. pt says he always had extra fluid retention for years since being on sprycel, admitted in 2016 for same but it has worsened lately. he had gained 30-40 lbs over last 7-8 years but nothing unusual over last few days-weeks. takes lasix but admits to drinking lot of water. Denies OTC/herbal meds or NSAIDs except occasional use recent iodinated contrast exposure as CTA 01/24/18. denies smoking/etoh/drugs serum cr 1.2-1.3 since 2014 ROS: Cardiovascular: No chest pain. Pulmonary: c/o shortness of breath but better Gastrointestinal: denies abdominal pain No nausea. No vomiting. Genitourinary: No pain while urinating. Denies blood in urine. no symptoms of BPH. All other negative. leg swelling better Physical Examination: General Appearance: Comfortable, in no acute respiratory distress, co-operative . morbid obese Vitals reviewed and noted as below Head; Atraumatic, normocephalic ENT: no ulcers no thrush. Tongue is midline. Oropharynx: no rash or ulcers. EYES: Pupils are equal, round and reactive to light accommodation. Eye muscles and extraocular movement intact. Sclera is anicteric. Neck; supple no lymphadenopathy, no thyromegaly or bruit Lungs: Normal respiratory rate/effort. Breath sounds bilateral decreased at bases Heart: Normal rate. s1s2 normal. No rub or gallop. Extremities: trace edema. No varicose veins Neurological: Patient is alert, awake and oriented to person, place and time. No focal deficit. Strength bilateral appropriate and equal Skin: Warm and dry. Normal turgor. No rash. Palpitation: Normal elasticity for age Abdomen: Abdomen is soft. Bowel sounds +. There is no abdominal tenderness, no guarding/rigidity no organomegaly Psych: normal insight and normal affect/mood MSK: no joint tenderness or swelling. Digits and nails normal, no deformity : kidney or bladder not palpable Labs/imaging reviewed. Past medical history, past surgical history, family history, social history, allergy reviewed and noted as below Family hx: no hx of CKD. Rest non-contributory UA: no blood or protein BNP 376 albumin 4.4 CTA minimal effusion Past Patient History - Past Medical History & Family History Past Medical History?: Yes - Past Social History Smoking Status: Never Smoked - CARDIAC Hx Hypertension: Yes - PULMONARY Hx Respiratory Disorders: No - NEUROLOGICAL Hx Neurological Disorder: No - HEENT Hx HEENT Problems: No - RENAL Hx Chronic Kidney Disease: No - ENDOCRINE/METABOLIC Hx Diabetes Mellitus Type 2: Yes - HEMATOLOGICAL/ONCOLOGICAL Hx Blood Disorders: Yes (CML ) Hx Leukemia: Yes - INTEGUMENTARY Hx Dermatological Problems: No - MUSCULOSKELETAL/RHEUMATOLOGICAL Hx Falls: No - GASTROINTESTINAL Other/Comment: hx of endoscopy - GENITOURINARY/GYNECOLOGICAL Hx Genitourinary Disorders: No - PSYCHIATRIC Hx Substance Use: No - SURGICAL HISTORY Hx Surgeries: No Other/Comment: no further information given by patient - ANESTHESIA Hx Anesthesia: Yes Hx Anesthesia Reactions: No Hx Malignant Hyperthermia: No Meds Allergies/Adverse Reactions: Allergies Allergy/AdvReac Type Severity Reaction Status Date / Time No Known Allergies Allergy Verified 01/24/18 16:21 - Medications Medications: Current Medications Furosemide (Lasix) 40 mg IVP BID [facility] Gabapentin (Neurontin) 300 mg PO DAILY [facility] Last Admin: 01/25/18 10:20 Dose: 300 mg Gabapentin (Neurontin) 600 mg PO HS [facility] Heparin Sodium (Porcine) (Heparin) 5,000 units SC Q12 [facility] Last Admin: 01/25/18 10:21 Dose: 5,000 units Hydralazine HCl (Apresoline) 50 mg PO TID [facility] Last Admin: 01/25/18 13:30 Dose: 50 mg Ceftriaxone Sodium 1 gm/ (Sodium Chloride) 100 mls @ 100 mls/hr IVPB DAILY [facility] PRN Reason: Protocol Last Admin: 01/25/18 10:15 Dose: 100 mls/hr Azithromycin 500 mg/ Sodium (Chloride) 250 mls @ 250 mls/hr IVPB DAILY [facility] PRN Reason: Protocol Last Admin: 01/25/18 12:40 Dose: 250 mls/hr Insulin Aspart (Novolog) 0 unit SC ACHS [facility] PRN Reason: Protocol Last Admin: 01/25/18 12:37 Dose: 1 unit Metformin HCl (Glucophage) 1,000 mg PO BID [facility] Potassium Chloride (K-Dur 20 Meq Er Tab) 20 meq PO DAILY [facility] Last Admin: 01/25/18 13:30 Dose: 20 meq Sitagliptin Phosphate (Januvia) 50 mg PO BID [facility] Last Admin: 01/25/18 10:20 Dose: 50 mg Results - Vital Signs Recent Vital Signs: Last Vital Signs Temp 98.2 F 01/25/18 08:44 Pulse 86 01/25/18 12:00 Resp 20 01/25/18 08:44 BP 104/64 01/25/18 10:21 Pulse Ox 97 01/25/18 13:15 - Labs Result Diagrams: 01/24/18 17:02 01/24/18 17:02 Labs: Laboratory Results - last 24 hr 01/24/18 01/24/18 01/24/18 17:02 17:02 17:02 WBC 12.0 H RBC 3.66 L Hgb 11.0 L Hct 33.0 L MCV 90.0 MCH 30.2 MCHC 33.5 RDW 15.6 H Plt Count 335 MPV 8.6 Neut % (Auto) 48.0 L Lymph % (Auto) 45.1 H [place] % (Auto) 4.8 Eos % (Auto) 1.2 Baso % (Auto) 0.9 Neut # (Auto) 5.7 Lymph # (Auto) 5.4 H [place] # (Auto) 0.6 Eos # (Auto) 0.1 Baso # (Auto) 0.1 PT 13.4 H INR 1.2 APTT 34 D-Dimer, Quantitative 594 H Sodium 137 Potassium 4.3 Chloride 102 Carbon Dioxide 24 Anion Gap 16 BUN 20 Creatinine 1.4 Est GFR ( Amer) > 60 Est GFR (Non-Af Amer) 52 POC Glucose (mg/dL) Random Glucose 187 H Calcium 9.8 Iron TIBC % Saturation Total Bilirubin 0.8 AST 50 ALT 68 Alkaline Phosphatase 76 Troponin I < 0.0120 NT-Pro-B Natriuret Pep 326 Total Protein 8.0 Albumin 4.4 Globulin 3.7 Albumin/Globulin Ratio 1.2 Urine Color Urine Clarity Urine pH Ur Specific [place] Urine Protein Urine Glucose (UA) Urine Ketones Urine Blood Urine Nitrate Urine Bilirubin Urine Urobilinogen Ur Leukocyte Esterase Urine WBC (Auto) 01/24/18 01/25/18 01/25/18 19:01 06:10 06:46 WBC RBC Hgb Hct MCV MCH MCHC RDW Plt Count MPV Neut % (Auto) Lymph % (Auto) [place] % (Auto) Eos % (Auto) Baso % (Auto) Neut # (Auto) Lymph # (Auto) [place] # (Auto) Eos # (Auto) Baso # (Auto) PT INR APTT D-Dimer, Quantitative Sodium Potassium Chloride Carbon Dioxide Anion Gap BUN Creatinine Est GFR ( Amer) Est GFR (Non-Af Amer) POC Glucose (mg/dL) 117 H Random Glucose Calcium Iron 58 TIBC 360 % Saturation 16 L Total Bilirubin AST ALT Alkaline Phosphatase Troponin I NT-Pro-B Natriuret Pep Total Protein Albumin Globulin Albumin/Globulin Ratio Urine Color Yellow Urine Clarity Clear Urine pH 6.0 Ur Specific [place] 1.019 Urine Protein Negative Urine Glucose (UA) 1+ H Urine Ketones Negative Urine Blood Negative Urine Nitrate Negative Urine Bilirubin Negative Urine Urobilinogen Normal Ur Leukocyte Esterase Neg Urine WBC (Auto) < 1 01/25/18 12:19 WBC RBC Hgb Hct MCV MCH MCHC RDW Plt Count MPV Neut % (Auto) Lymph % (Auto) [place] % (Auto) Eos % (Auto) Baso % (Auto) Neut # (Auto) Lymph # (Auto) [place] # (Auto) Eos # (Auto) Baso # (Auto) PT INR APTT D-Dimer, Quantitative Sodium Potassium Chloride Carbon Dioxide Anion Gap BUN Creatinine Est GFR ( Amer) Est GFR (Non-Af Amer) POC Glucose (mg/dL) 169 H Random Glucose Calcium Iron TIBC % Saturation Total Bilirubin AST ALT Alkaline Phosphatase Troponin I NT-Pro-B Natriuret Pep Total Protein Albumin Globulin Albumin/Globulin Ratio Urine Color Urine Clarity Urine pH Ur Specific [place] Urine Protein Urine Glucose (UA) Urine Ketones Urine Blood Urine Nitrate Urine Bilirubin Urine Urobilinogen Ur Leukocyte Esterase Urine WBC (Auto)
--- NOTE | 2018-01-25 16:03 | VASCLAB ---
PROCEDURE: Lower Extremity Venous Duplex Exam. HISTORY: r/o DVT PRIORS: None. TECHNIQUE: Bilateral common femoral, femoral, popliteal and posterior tibial, peroneal and great saphenous veins were evaluated. Flow was assessed with color Doppler, compressibility, assessment of phasic flow and augmentation response. Report prepared by Alex Gomez, JANET, RVT FINDINGS: RIGHT: 1. Common Femoral Vein: 1.1. Compressibility - Fully compressible: Thrombus - None : Flow - Phasic: Augmentation -Normal: Reflux - None. 2. Femoral Vein: 2.1. Compressibility - Fully compressible: Thrombus - None : Flow - Phasic: Augmentation -Normal: Reflux - None. 3. Popliteal Vein: 3.1. Compressibility - Fully compressible: Thrombus - None : Flow - Phasic: Augmentation -Normal: Reflux - None. 4. Posterior Tibial Vein: 4.1. Compressibility - Fully compressible: Thrombus - None: Flow - Phasic: Augmentation -Normal: Reflux - None. 5. Peroneal Vein: 5.1. Compressibility - Fully compressible: Thrombus - None: Flow - Phasic: Augmentation -Normal: Reflux - None. 6. Great Saphenous Vein: 6.1. Compressibility - Fully compressible: Thrombus - None: Flow - Phasic: Augmentation - Normal: Reflux - None. LEFT: 1. Common Femoral Vein: 1.1. Compressibility - Fully compressible: Thrombus - None: Flow - Phasic: Augmentation -Normal: Reflux - None. 2. Femoral Vein: 2.1. Compressibility - Fully compressible: Thrombus - None: Flow - Phasic: Augmentation -Normal: Reflux - None. 3. Popliteal Vein: 3.1. Compressibility - Fully compressible: Thrombus - None : Flow - Phasic: Augmentation -Normal: Reflux - None. 4. Posterior Tibial Vein: 4.1. Compressibility - Fully compressible: Thrombus - None: Flow - Phasic: Augmentation -Normal: Reflux - None. 5. Peroneal Vein: 5.1. Compressibility - Fully compressible: Thrombus - None: Flow - Phasic: Augmentation -Normal: Reflux - None. 6. Great Saphenous Vein: 6.1. Compressibility - Fully compressible: Thrombus - None: Flow - Phasic: Augmentation - Normal: Reflux - None. OTHER FINDINGS: Right: None significant. Left: None significant. IMPRESSION: Right: No evidence of deep or superficial vein thrombosis of the right lower extremity. Normal valve function noted of the right side. Left: No evidence of deep or superficial vein thrombosis of the left lower extremity. Normal valve function noted of the left side.
--- NOTE | 2018-01-25 19:20 | CARD ---
APPROVED REPORT EKG Measurement Heart [id number] MA [id number] [id number] <Conclusion> Normal sinus rhythm Normal ECG
[2018-01-25 20:01] LABS: CREATININE, RANDOM URINE 68.9 mg/dL
[2018-01-25] MEDS ORDERED: DASATINIB 100 MG PO SCH (22:00)
--- NOTE | 2018-01-26 00:25 | CON ---
DATE: REASON FOR CONSULTATION: Shortness of breath. PAST MEDICAL HISTORY: The patient is a 62-year-old [place] male who was diagnosed with CML in 2009 and is currently undergoing a chemotherapy. The patient has no prior history of DVT, pulmonary embolism or bleeding and never required blood transfusion. The patient presented because of shortness of breath, facial and leg swelling. The patient complains of nonproductive cough. He feels hot, but denies any chills. REVIEW OF SYSTEMS: The patient denies any dizziness or syncope. He denies any melena. He is unaware of any prior cardiac history. SOCIAL HISTORY: Nonsmoker, nondrinker. MEDICATIONS: Hydralazine 50 mg three times daily, Zithromax 500 mg intravenously daily, Rocephin 1 gm intravenously daily, Glucophage 1 gm twice a day, heparin 5000 units subcutaneous twice a day, Januvia 50 mg twice daily, Lasix 20 mg p.o. once a day, gabapentin 600 mg daily, Toprol-XL 50 mg twice a day. PHYSICAL EXAMINATION: GENERAL: The patient is a middle-aged male who does not appear to be in acute distress. VITAL SIGNS: Blood pressure 90/47, heart rate 79, temperature 98.2, respirations 20. HEENT: Facial edema. NECK: No JVD. CHEST: Absent breath sounds over the bases. HEART: S1 and S2, regular and distant. ABDOMEN: Soft. EXTREMITIES: 1+ pitting edema. No calf tenderness. LABORATORY DATA: Hemoglobin and hematocrit 11 and 33. White count 12, platelets count 335,000. SMA-7 is within normal limits except for glucose of 187. One set of troponin is negative. Albumin level is within normal limits. D-dimer 594, INR 1.2, PTT 34. Echocardiographic study preliminary report revealed normal ejection fraction and moderate pulmonary hypertension. Chest x-ray revealed borderline cardiomegaly with mild to moderate CHF. EKG revealed normal sinus rhythm. ASSESSMENT: 1. Congestive heart failure, most likely diastolic dysfunction, he has underlying . 2. Chronic myelocytic leukemia. 3. Uncontrolled diabetes mellitus. 4. Mild anemia. 5. Rule out underlying pneumonia. RECOMMENDATIONS: Continue hydralazine 50 mg three times daily. Continue IV Rocephin and IV Zithromax. Continue subcutaneous heparin 5000 units twice a day. Change Lasix to 40 mg intravenously twice a day, discontinue Toprol-XL for now. Obtain venous Doppler of lower extremities. The report of the CT angio of the chest stated no evidence of pulmonary embolism. Examination limited for evaluation of subsegmental pulmonary artery branches. Huan Tyson MD
[2018-01-26 07:55] LABS: BASO # 0.1 K/uL (0.0-0.2); BASO % 0.9 % (0.0-2.0); EOS # 0.4 K/uL (0.0-0.7); EOS % 3.9 % (0.0-4.0); HEMOGLOBIN 10.1 g/dL (12.0-18.0); LYMPH # 5.2 K/uL (1.0-4.3); LYMPH % 47.3 % (20.0-40.0); MEAN CELL VOLUME 90.1 fL (80.0-94.0); MEAN CORPUSCULAR HEMOGLOBIN 31.3 pg (27.0-31.0); MEAN CORPUSCULAR HGB CONC 34.8 g/dL (33.0-37.0); MEAN PLATELET VOLUME 8.2 fL (7.2-11.7); MONO # 0.6 K/uL (0.0-0.8); MONO % 5.2 % (0.0-10.0); NEUT # 4.6 K/uL (1.8-7.0); NEUT % 42.7 % (50.0-75.0); RBC 3.23 Mil/uL (4.40-5.90); WHITE BLOOD COUNT 10.9 K/uL (4.8-10.8)
[2018-01-26] MEDS: (Novolog) Insulin Aspart, Recombinant 100 u/ml 10 ml vial SC SCH ×3 (08:06→17:30)
[2018-01-26 08:28] LABS: CALCIUM 9.2 mg/dl (8.6-10.4)
[2018-01-26] MEDS ORDERED: Ergocalciferol 50,000 Intl Units Cap PO SCH (09:30)
--- NOTE | 2018-01-26 09:49 | CARD ---
APPROVED REPORT EXAM: Two-dimensional and M-mode echocardiogram with Doppler and color Doppler. Other Information Quality : GoodRhythm : INDICATION Dizziness and Vertigo Dyspnea Peripheral Edema RISK FACTORS Obesity Hyperlipidemia Diabetes 2D DIMENSIONS IVSd1.2 (0.7-1.1cm)LVDd5.3 (3.9-5.9cm) PWd1.4 (0.7-1.1cm)LVDs3.5 (2.5-4.0cm) FS (%) 34.2 %LVEF (%)69.0 (>50%) M-Mode DIMENSIONS RVDd2.43 (2.1-3.2cm)Left Atrium (MM)3.76 (2.5-4.0cm) IVSd1.17 (0.7-1.1cm)Aortic Root3.18 (2.2-3.7cm) LVDd5.98 (4.0-5.6cm)Aortic Cusp Exc.2.58 (1.5-2.0cm) PWd1.20 (0.7-1.1cm)FS (%) 44 % LVDs3.34 (2.0-3.8cm)LVEF (%)75 (>50%) Mitral Valve MV E Lsofsxnw971.1cm/sMV A Sbcfhhru286.6cm/sE/A ratio1.1 TDI E/Lateral E'0.0E/Medial E'0.0 Tricuspid Valve TR Peak Kkdkgudt752hg/sTR Peak Gr.68mbAbVVGL21wxPx LEFT VENTRICLE There is borderline to mild concentric left ventricular hypertrophy. Left ventricle systolic function is normal. The Ejection Fraction is >70%. There is normal LV segmental wall motion. The left ventricular diastolic function is normal. No left ventricle thrombus noted on this study. RIGHT VENTRICLE The right ventricle is mildly dilated. The right ventricular systolic function is normal. ATRIA The left atrium size is normal. The right atrium size is normal. AORTIC VALVE The aortic valve is mildly thickened. The aortic valve is trileaflet. No aortic regurgitation is present. There is no aortic valvular stenosis. There is no aortic valvular vegetation. MITRAL VALVE Mitral annular calcification is mild. There is no evidence of mitral valve prolapse. There is no mitral valve stenosis. Mitral regurgitation is trace to mild. TRICUSPID VALVE The tricuspid valve is normal in structure. There is mild tricuspid regurgitation. Right ventricular systolic pressure is estimated at 50-60 mmHg. There is moderate pulmonary hypertension. There is no tricuspid valve prolapse or vegetation. There is no tricuspid valve stenosis. PULMONIC VALVE The pulmonic valve is not well visualized. There is no pulmonic valvular regurgitation. GREAT VESSELS The aortic root is normal in size. The IVC collapses <50% with inspiration. PERICARDIAL EFFUSION There is no pericardial effusion. There is no pleural effusion. <Conclusion> There is borderline to mild concentric left ventricular hypertrophy. Left ventricle systolic function is normal. The Ejection Fraction is >70%. The left ventricular diastolic function is normal. The right ventricle is mildly dilated. The right ventricular systolic function is normal. The left atrium size is normal. The right atrium size is normal. Mitral regurgitation is trace to mild. There is mild tricuspid regurgitation. There is moderate pulmonary hypertension.
[2018-01-26] MEDS: Potassium Chloride 20 mEq ER Tab PO SCH (10:55)
[2018-01-26] MEDS: Azithromycin 500 MG in Sodium Chloride 0.9% 250 ML IVPB SCH (11:10)
--- NOTE | 2018-01-26 13:52 | US ---
PROCEDURE: Ultrasound of the Kidneys HISTORY: CKD 3 COMPARISON: None available. TECHNIQUE: Sonogram of the kidneys. FINDINGS: RIGHT KIDNEY: Measures: 11.0 x 5.3 x 5.1 cm. Normal in size and contour, however, there is poor corticomedullary definition with limited increase in parenchymal echogenicity which may indicate intrinsic medical renal disease. No stone, solid mass lesion or hydronephrosis visualized. LEFT KIDNEY: Measures: 11.0 x 5.6 x 4.8 cm. Normal in size and contour, however, there is poor corticomedullary definition with limited increase in parenchymal echogenicity which may indicate intrinsic medical renal disease. No stone, solid mass lesion or hydronephrosis visualized. OTHER FINDINGS: None. IMPRESSION: No obstructive uropathy bilaterally. Findings suspicious for intrinsic medical renal disease bilaterally.
--- NOTE | 2018-01-26 15:03 | CP.PCM.PN ---
Subjective - Date & Time of Evaluation Date of Evaluation: 01/26/18 Time of Evaluation: 15:02 - Subjective Subjective: PATIENT WAS ADMITTED FOR PNA/ DYSPNEA/ ELEVATED D DIMER DENIES DIZZYNES OR SYNCOPE NO SIGN OF DISTRESS NOTED Objective - Vital Signs/Intake and Output Vital Signs (last 24 hours): Temp Pulse Resp BP Pulse Ox 98.8 F 77 20 109/68 94 L 01/26/18 08:33 01/26/18 08:33 01/26/18 08:33 01/26/18 10:55 01/26/18 08:33 - Medications Medications: Current Medications Ergocalciferol (Drisdol 50,000 Intl Units Cap) 1 cap PO Q7D [facility] Last Admin: 01/26/18 10:05 Dose: 1 cap Ferrous Gluconate (Fergon) 324 mg PO TID [facility] Last Admin: 01/26/18 14:44 Dose: 324 mg Furosemide (Lasix) 40 mg IVP BID [facility] Last Admin: 01/26/18 10:55 Dose: 40 mg Gabapentin (Neurontin) 300 mg PO DAILY [facility] Last Admin: 01/26/18 10:07 Dose: 300 mg Gabapentin (Neurontin) 600 mg PO HS [facility] Last Admin: 01/25/18 21:33 Dose: 600 mg Heparin Sodium (Porcine) (Heparin) 5,000 units SC Q12 [facility] Last Admin: 01/26/18 10:06 Dose: 5,000 units Home Med (Patient's Own Medication) 1 tab PO HS [facility] Last Admin: 01/25/18 21:33 Dose: 1 tab Hydralazine HCl (Apresoline) 25 mg PO BID [facility] Last Admin: 01/26/18 10:07 Dose: 25 mg Ceftriaxone Sodium 1 gm/ (Sodium Chloride) 100 mls @ 100 mls/hr IVPB DAILY [facility] PRN Reason: Protocol Last Admin: 01/26/18 10:08 Dose: 100 mls/hr Azithromycin 500 mg/ Sodium (Chloride) 250 mls @ 250 mls/hr IVPB DAILY [facility] PRN Reason: Protocol Last Admin: 01/26/18 11:10 Dose: 250 mls/hr Insulin Aspart (Novolog) 0 unit SC ACHS [facility] PRN Reason: Protocol Last Admin: 01/26/18 12:59 Dose: Not Given Metformin HCl (Glucophage) 1,000 mg PO BID [facility] Potassium Chloride (K-Dur 20 Meq Er Tab) 20 meq PO DAILY [facility] Last Admin: 01/26/18 10:55 Dose: 20 meq Sitagliptin Phosphate (Januvia) 50 mg PO BID [facility] Last Admin: 01/26/18 10:10 Dose: 50 mg Vitamin B Complex/Vit C/Folic Acid (Nephro-Paula) 1 tab PO 0800 [facility] - Labs Labs: 01/26/18 07:46 01/26/18 07:46 PT 13.4 SECONDS (9.7-12.2) H 01/24/18 17:02 INR 1.2 01/24/18 17:02 APTT 34 SECONDS (21-34) 01/24/18 17:02 Assessment and Plan - Assessment and Plan (Free Text) Assessment: PATIENT SEEN AND EXAMINED AT THE BEDSIDE VENOUS DUPLEX AND CHEST CT SHOW NO EVIDENCE OF PE OR DVT No acute need for renal replacement therapy at this time. Hypertension control with meds as ordered. supplements lytes as needed continue with lasix as per cardiology. hold metformin 48 hrs post cath pt advised to loose weight. oral salt and fluid restriction DISCUSS WITH DR BREWER WHO CLEAR PATIENT FOR DC FOLLOW UP WITH DR BREWER IN 1-2 WEEKS AT HIS OFFICE ---CALL FOR APPOOINTMENT FOLLOW UP WITH DR RODRIGUES WITH 1 -2 WEEKS AT HIS OFFICE ---CALL FOR APPOINTMENT CONTINUE ALL YOUR HOME MEDICATION NEW PRESCRIPTION GIVEN ZYTHROMAX 250 MG PO DAILY FOR 3 DAILY ROBUTUSSIN 10 ML Q6H FOR COUGH HYDRALIZINE TITRATE TO 25 MG PO BID LASIX INCREASE TO 40 MG PO DAILY ACTIVITY TOLERATED CALL DR RODRIGUES OR DR BREWER OR GO TO THE EMERGENCY ROOM IF SYMPTOMS RETURN OR WORSENING DISCUSS WITH PATIENT WHO AGREE
--- NOTE | 2018-01-26 16:39 | CP.PCM.PN ---
Subjective - Date & Time of Evaluation Date of Evaluation: 01/26/18 Time of Evaluation: 16:38 - Subjective Subjective: Nephrology Consultation: Assessment: Stable Fluid retention likel due to medication side effect (sprycel). normal serum alb and no proteinuria on dipstick argues against nephrotic syndrome/renal cause possible pneumonia CKD stage 3 (stable), without proteinuria DM, HTN, MARGOTH on CPAP, morbid obesity Leukemia in remission Plan No acute need for renal replacement therapy at this time. Hypertension control with meds as ordered. Patient not on ACEI/ARB as BP on low side and no proteinuria Monitor Input/Output, daily weights and renal function with basic metabolic panel supplements lytes as needed continue with lasix as per cardiology. hold metformin 48 hrs post cath pt advised to loose weight. oral salt and fluid restriction Check urine spot protein/creatinine and albumin/creatinine ratio, renal sonogram. check SPEP/serum RASHID and free light chain assay. vit D and PTH levels Dose meds/antibiotics for reduced GFR. Avoid fleets enema/magnesium based laxatives. Avoid nephrotoxins/NSAIDs/ iodinated contrast (unless needed emergently) Glycemic control Further work up/management as per primary team Thanks for allowing me to participate in care of your patient. Will follow patient with you. Please call if any Qs. d/w team. Dr Clemente Ortiz Office: [phone] Chief Complaint; shortness of breath reason for consult: edema and renal insuff HPI: Pt is a 62 M with hx of diabetes Mellitus (5-6 years), hypertension (5-6 years) morbid obesity, MARGOTH on CPAP, leukemia in remission on Sprycel (for last 7 -8 years) presented with worsening SOB over last 1 week. pt says he always had extra fluid retention for years since being on sprycel, admitted in 2016 for same but it has worsened lately. he had gained 30-40 lbs over last 7-8 years but nothing unusual over last few days-weeks. takes lasix but admits to drinking lot of water. Denies OTC/herbal meds or NSAIDs except occasional use recent iodinated contrast exposure as CTA 01/24/18. denies smoking/etoh/drugs serum cr 1.2-1.3 since 2015 ROS: Cardiovascular: No chest pain. Pulmonary: shortness of breath but better Gastrointestinal: denies abdominal pain No nausea. No vomiting. Genitourinary: No pain while urinating. Denies blood in urine. no symptoms of BPH. All other negative. leg swelling better Physical Examination: General Appearance: Comfortable, in no acute respiratory distress, co-operative . morbid obese Vitals reviewed and noted as below Head; Atraumatic, normocephalic ENT: no ulcers no thrush. Tongue is midline. Oropharynx: no rash or ulcers. EYES: Pupils are equal, round and reactive to light accommodation. Eye muscles and extraocular movement intact. Sclera is anicteric. Neck; supple no lymphadenopathy, no thyromegaly or bruit Lungs: Normal respiratory rate/effort. Breath sounds bilateral decreased at bases Heart: Normal rate. s1s2 normal. No rub or gallop. Extremities: trace edema. No varicose veins Neurological: Patient is alert, awake and oriented to person, place and time. No focal deficit. Strength bilateral appropriate and equal Skin: Warm and dry. Normal turgor. No rash. Palpitation: Normal elasticity for age Abdomen: Abdomen is soft. Bowel sounds +. There is no abdominal tenderness, no guarding/rigidity no organomegaly Psych: normal insight and normal affect/mood MSK: no joint tenderness or swelling. Digits and nails normal, no deformity : kidney or bladder not palpable Labs/imaging reviewed. Past medical history, past surgical history, family history, social history, allergy reviewed and noted as below Family hx: no hx of CKD. Rest non-contributory UA: no blood or protein BNP 376 albumin 4.4 CTA minimal effusion Objective - Vital Signs/Intake and Output Vital Signs (last 24 hours): Temp Pulse Resp BP Pulse Ox 98.8 F 77 20 109/68 94 L 01/26/18 08:33 01/26/18 08:33 01/26/18 08:33 01/26/18 10:55 01/26/18 08:33 Intake and Output: 01/26/18 01/26/18 06:59 18:59 Intake Total 350 Balance 350 - Medications Medications: Current Medications Ergocalciferol (Drisdol 50,000 Intl Units Cap) 1 cap PO Q7D [facility] Last Admin: 01/26/18 10:05 Dose: 1 cap Ferrous Gluconate (Fergon) 324 mg PO TID [facility] Last Admin: 01/26/18 14:44 Dose: 324 mg Furosemide (Lasix) 40 mg IVP BID [facility] Last Admin: 01/26/18 10:55 Dose: 40 mg Gabapentin (Neurontin) 300 mg PO DAILY [facility] Last Admin: 01/26/18 10:07 Dose: 300 mg Gabapentin (Neurontin) 600 mg PO HS [facility] Last Admin: 01/25/18 21:33 Dose: 600 mg Heparin Sodium (Porcine) (Heparin) 5,000 units SC Q12 [facility] Last Admin: 01/26/18 10:06 Dose: 5,000 units Home Med (Patient's Own Medication) 1 tab PO HS [facility] Last Admin: 01/25/18 21:33 Dose: 1 tab Hydralazine HCl (Apresoline) 25 mg PO BID [facility] Last Admin: 01/26/18 10:07 Dose: 25 mg Ceftriaxone Sodium 1 gm/ (Sodium Chloride) 100 mls @ 100 mls/hr IVPB DAILY [facility] PRN Reason: Protocol Last Admin: 01/26/18 10:08 Dose: 100 mls/hr Azithromycin 500 mg/ Sodium (Chloride) 250 mls @ 250 mls/hr IVPB DAILY [facility] PRN Reason: Protocol Last Admin: 01/26/18 11:10 Dose: 250 mls/hr Insulin Aspart (Novolog) 0 unit SC ACHS [facility] PRN Reason: Protocol Last Admin: 01/26/18 12:59 Dose: Not Given Metformin HCl (Glucophage) 1,000 mg PO BID [facility] Potassium Chloride (K-Dur 20 Meq Er Tab) 20 meq PO DAILY [facility] Last Admin: 01/26/18 10:55 Dose: 20 meq Sitagliptin Phosphate (Januvia) 50 mg PO BID [facility] Last Admin: 01/26/18 10:10 Dose: 50 mg Vitamin B Complex/Vit C/Folic Acid (Nephro-Paula) 1 tab PO 0800 [facility] - Labs Labs: 01/26/18 07:46 01/26/18 07:46 PT 13.4 SECONDS (9.7-12.2) H 01/24/18 17:02 INR 1.2 01/24/18 17:02 APTT 34 SECONDS (21-34) 01/24/18 17:02
[2018-01-26 21:30] VITALS: BP 163/73; PULSE 81; TEMP 98.1; O2SAT 97
--- NOTE | 2018-01-26 22:02 | PN ---
DATE: 01/26/2018 SUBJECTIVE: The patient denies any chest pain. She denies any palpitations, but no reported arrhythmia. PHYSICAL EXAMINATION: VITAL SIGNS: Blood pressure 106/66, heart rate 77, temperature 98.8, respirations 20. HEENT: Facial edema. CHEST: Clear. HEART: S1 and S2, regular. EXTREMITIES: 1+ pitting edema. LABORATORY DATA: Today's hemoglobin and hematocrit 10.1 and 29.1, white count 10.9, platelet count 303,000. Today's SMA-7 is within normal limits except glucose of 132 and BUN of 21. Renal ultrasound: Obstructive uropathy bilaterally. Findings suspicious for intrinsic medical renal disease bilaterally. Official echocardiographic study report: Borderline to mild concentric LVH with normal ejection fraction. Normal right ventricular systolic function. Moderate pulmonary hypertension. ASSESSMENT: 1. Consider diastolic left ventricular dysfunction. 2. Chronic myelocytic leukemia. 3. Uncontrolled diabetes mellitus. RECOMMENDATIONS: Continue current hydralazine 25 mg twice a day. Continue IV Rocephin and IV Zithromax. Continue Lasix 20 mg intravenously twice a day, K-Dur 20 mEq once a day. Subcutaneous heparin 5000 units twice a day. The patient can follow up with his sock examiner as outpatient for 24-hour ambulatory Holter monitor. Huan Tyson MD
--- NOTE | 2018-01-26 23:15 | CP.PCM.DIS ---
Provider - Provider Date of Admission: 01/24/18 20:58 Attending physician: Salvatore Ferro MD Time Spent in preparation of Discharge (in minutes): 45 Hospital Course - Lab Results Lab Results: Micro Results 01/24/18 18:50 Blood Blood Culture - Preliminary NO GROWTH AFTER 24 HOURS 01/24/18 19:00 Blood Blood Culture - Preliminary NO GROWTH AFTER 24 HOURS Most Recent Lab Values WBC 10.9 K/uL (4.8-10.8) H 01/26/18 07:46 RBC 3.23 Mil/uL (4.40-5.90) L 01/26/18 07:46 Hgb 10.1 g/dL (12.0-18.0) L 01/26/18 07:46 Hct 29.1 % (35.0-51.0) L 01/26/18 07:46 MCV 90.1 fL (80.0-94.0) 01/26/18 07:46 MCH 31.3 pg (27.0-31.0) H 01/26/18 07:46 MCHC 34.8 g/dL (33.0-37.0) 01/26/18 07:46 RDW 15.0 % (11.5-14.5) H 01/26/18 07:46 Plt Count 303 K/uL (130-400) 01/26/18 07:46 MPV 8.2 fL (7.2-11.7) 01/26/18 07:46 Neut % (Auto) 42.7 % (50.0-75.0) L 01/26/18 07:46 Lymph % (Auto) 47.3 % (20.0-40.0) H 01/26/18 07:46 [place] % (Auto) 5.2 % (0.0-10.0) 01/26/18 07:46 Eos % (Auto) 3.9 % (0.0-4.0) 01/26/18 07:46 Baso % (Auto) 0.9 % (0.0-2.0) 01/26/18 07:46 Neut # (Auto) 4.6 K/uL (1.8-7.0) 01/26/18 07:46 Lymph # (Auto) 5.2 K/uL (1.0-4.3) H 01/26/18 07:46 [place] # (Auto) 0.6 K/uL (0.0-0.8) 01/26/18 07:46 Eos # (Auto) 0.4 K/uL (0.0-0.7) 01/26/18 07:46 Baso # (Auto) 0.1 K/uL (0.0-0.2) 01/26/18 07:46 PT 13.4 SECONDS (9.7-12.2) H 01/24/18 17:02 INR 1.2 01/24/18 17:02 APTT 34 SECONDS (21-34) 01/24/18 17:02 D-Dimer, Quantitative 594 ng/mlDDU (0-243) H 01/24/18 17:02 Sodium 139 mmol/L (132-148) 01/26/18 07:46 Potassium 4.2 mmol/L (3.6-5.2) 01/26/18 07:46 Chloride 104 mmol/L (98-107) 01/26/18 07:46 Carbon Dioxide 26 mmol/L (22-30) 01/26/18 07:46 Anion Gap 13 (10-20) 01/26/18 07:46 BUN 21 mg/dL (9-20) H 01/26/18 07:46 Creatinine 1.5 mg/dL (0.8-1.5) 01/26/18 07:46 Est GFR ( Amer) 58 01/26/18 07:46 Est GFR (Non-Af Amer) 48 01/26/18 07:46 POC Glucose (mg/dL) 209 mg/dL (65-110) H 01/26/18 17:05 Random Glucose 132 mg/dL (75-110) H 01/26/18 07:46 Calcium 9.2 mg/dl (8.6-10.4) 01/26/18 07:46 Iron 58 ug/dL (49-181) 01/25/18 06:10 TIBC 360 ug/dL (250-450) 01/25/18 06:10 % Saturation 16 (20-55) L 01/25/18 06:10 Total Bilirubin 0.8 mg/dL (0.2-1.3) 01/24/18 17:02 AST 50 U/L (17-59) 01/24/18 17:02 ALT 68 U/L (21-72) 01/24/18 17:02 Alkaline Phosphatase 76 U/L (38-126) 01/24/18 17:02 Troponin I < 0.0120 ng/mL (0.00-0.120) 01/24/18 17:02 NT-Pro-B Natriuret Pep 326 pg/mL (0-900) 01/24/18 17:02 Total Protein 8.0 g/dL (6.3-8.3) 01/24/18 17:02 Albumin 4.4 g/dL (3.5-5.0) 01/24/18 17:02 Globulin 3.7 gm/dL (2.2-3.9) 01/24/18 17:02 Albumin/Globulin Ratio 1.2 (1.0-2.1) 01/24/18 17:02 25-OH Vitamin D Total 19.8 NG/ML (30.0-100.0) L 01/26/18 07:46 Urine Color Yellow (YELLOW) 01/24/18 19:01 Urine Clarity Clear (Clear) 01/24/18 19: Urine pH 6.0 (5.0-8.0) 01/24/18 19:01 Ur Specific [place] 1.019 (1.003-1.030) 01/24/18 19:01 Urine Protein Negative mg/dL (NEGATIVE) 01/24/18 19:01 Urine Glucose (UA) 1+ mg/dL (Normal) H 01/24/18 19: Urine Ketones Negative mg/dL (NEGATIVE) 01/24/18 19: Urine Blood Negative (NEGATIVE) 01/24/18 19: Urine Nitrate Negative (NEGATIVE) 01/24/18 19: Urine Bilirubin Negative (NEGATIVE) 01/24/18 19: Urine Urobilinogen Normal mg/dL (0.2-1.0) 01/24/18 19: Ur Leukocyte Esterase Neg Katheryn/uL (Negative) 01/24/18 19:01 Urine WBC (Auto) < 1 /hpf (0-5) 01/24/18 19:01 Ur Random Creatinine 68.9 mg/dL 01/25/18 19:47 U Random Total Protein 10.0 mg/dL (0.0-12.0) 01/25/18 19:47 - Hospital Course Hospital Course: Assessment: Pt seen and examined is Stable for discharge Fluid retention likel due to medication side effect (sprycel). normal serum alb and no proteinuria on dipstick argues against nephrotic syndrome/renal cause possible pneumonia CKD stage 3 (stable), without proteinuria DM, HTN, MARGOTH on CPAP, morbid obesity Leukemia in remission Plan No acute need for renal replacement therapy at this time. Hypertension control with meds as ordered. Patient not on ACEI/ARB as BP on low side and no proteinuria Monitor Input/Output, daily weights and renal function with basic metabolic panel supplements lytes as needed continue with lasix as per cardiology. hold metformin 48 hrs post cath pt advised to loose weight. oral salt and fluid restriction Check urine spot protein/creatinine and albumin/creatinine ratio, renal sonogram. check SPEP/serum RASHID and free light chain assay. vit D and PTH levels Discharge Exam - Head Exam Head Exam: NORMAL INSPECTION - Eye Exam Eye Exam: EOMI, Normal appearance - ENT Exam ENT Exam: Mucous Membranes Moist - Respiratory Exam Respiratory Exam: Decreased Breath Sounds, Rales - Cardiovascular Exam Cardiovascular Exam: REGULAR RHYTHM, +S1, +S2 - GI/Abdominal Exam GI & Abdominal Exam: Normal Bowel Sounds Discharge Plan - Discharge Medications Prescriptions: hydrALAZINE [Apresoline] 25 mg PO BID 60 Days tab Azithromycin 250 mg PO DAILY 3 Days tab Furosemide [Lasix] 40 mg PO DAILY 30 Days tab guaiFENesin/Dextromethorphan [guaiFENesin-DM] 10 ml PO Q6H 10 Days udc - Follow Up Plan Condition: STABLE Disposition: HOME/ ROUTINE Instructions: Azithromycin (Systemic), Carbohydrate Counting Diet, Pneumonia, Adult (DC), Shortness of Breath (Dyspnea) (DC), Diabetes Diet , Furosemide, Guaifenesin and Dextromethorphan, Hydralazine, Diabetes and Diet Additional Instructions: FOLLOW UP WITH DR FERRO IN 1-2 WEEKS AT HIS OFFICE ---CALL FOR APPOOINTMENT FOLLOW UP WITH DR ESPINOZA WITH 1 -2 WEEKS AT HIS OFFICE ---CALL FOR APPOINTMENT CONTINUE ALL YOUR HOME MEDICATION NEW PRESCRIPTION GIVEN ZYTHROMAX 250 MG PO DAILY FOR 3 DAILY ROBUTUSSIN 10 ML Q6H FOR COUGH HYDRALIZINE TITRATE TO 25 MG PO BID LASIX INCREASE TO 40 MG PO DAILY ACTIVITY TOLERATED CALL DR ESPINOZA OR DR FERRO OR GO TO THE EMERGENCY ROOM IF SYMPTOMS RETURN OR WORSENING Referrals: Prince Espinoza MD [Staff Provider] - Huan Tyson MD [Staff Provider] - Salvatore Ferro MD [Staff Provider] - Fay Hendrickson MD [Staff Provider] -
[2018-01-27] MEDS ORDERED: Multivitamin Vitamin B Complex (Nephro-Vite) Tab PO SCH (08:00)
[2018-01-28 13:12] LABS: ALBUMIN (PEP) 3.7 g/dL (3.8-4.8); ALPHA-1-GLOBULIN (PEP) 0.2 g/dL (0.2-0.3)
== END 2018-01-26 17:45 | disposition home or self-care (01) | DRG 544 ==
LOC: C.ER 16:15 → C.9E 20:58 → C.6T 21:55
PROVIDERS: ADMIT Internal Medicine; ATTEND Internal Medicine
DX: I13.0 Hypertensive heart and chronic kidney disease with heart failure and stage 1 through stage 4 chronic kidney disease, or unspecified chronic kidney disease (principal); I50.33 Acute on chronic diastolic (congestive) heart failure; J18.9 Pneumonia, unspecified organism; N18.3 Chronic kidney disease, stage 3 (moderate); E11.22 Type 2 diabetes mellitus with diabetic chronic kidney disease; C92.11 Chronic myeloid leukemia, BCR/ABL-positive, in remission; E11.65 Type 2 diabetes mellitus with hyperglycemia; D64.9 Anemia, unspecified; E78.5 Hyperlipidemia, unspecified; E66.01 Morbid (severe) obesity due to excess calories; R79.1 Abnormal coagulation profile

== ENCOUNTER 2018-08-16 15:50 | Inpatient (IN) | payer MEDICARE, MEDICAID ==
[2018-08-16 15:52] VITALS: BMI 37.0
--- NOTE | 2018-08-16 16:37 | C.PDOC ---
History Of Present Illness 63yo male, history of leukemia, referred to ER by Dr. Hendrickson and Dr. Morrison due to shortness of breath and bilateral pleural effusions. Patient was evaluated in April 2018 and did not have pleural effusions at that time. He is currently undergoing treatment by Dr. Hendrickson for leukemia. No additional complaints. Time Seen by Provider: 08/16/18 16:28 Chief Complaint (Nursing): Shortness Of Breath History Per: Patient History/Exam Limitations: no limitations Onset/Duration Of Symptoms: Days Associated Symptoms: denies: Fever, Chills, Chest Pain, Bloody Cough, Productive Cough Additional History Per: Patient Past Medical History Reviewed: Historical Data, Nursing Documentation, Vital Signs Vital Signs: Last Vital Signs Temp 98.2 F 08/16/18 15:53 Pulse 73 08/16/18 15:53 Resp 22 08/16/18 15:53 BP 141/84 08/16/18 15:53 Pulse Ox 96 08/16/18 15:53 - Medical History PMH: HTN, Malignancy (CLL) Denies: Chronic Kidney Disease Surgical History: No Surg Hx - [facility] Procedures OTHER SKIN & SUBQ I D (06/22/13) Family History: States: No Known Family Hx - Social History Hx Tobacco Use: No Hx Alcohol Use: No Hx Substance Use: No - Immunization History Hx Tetanus Toxoid Vaccination: Yes Hx Influenza Vaccination: Yes (2018) Hx Pneumococcal Vaccination: Yes Review Of Systems Constitutional: Negative for: Fever, Chills Cardiovascular: Negative for: Chest Pain Respiratory: Positive for: Shortness of Breath. Negative for: Cough Gastrointestinal: Negative for: Nausea, Vomiting Skin: Negative for: Rash Neurological: Negative for: Weakness, Numbness Physical Exam - Physical Exam Appears: Non-toxic, Chronically Ill, Other (obese) Skin: Dry, Pale Head: Atraumatic, Normacephalic Eye(s): bilateral: Normal Inspection Neck: Supple Chest: Symmetrical Cardiovascular: Rhythm Regular Respiratory: Decreased Breath Sounds (diminished breath sounds bilateral from mid-field down, left > right), Other (dull to percussion) Gastrointestinal/Abdominal: Soft Extremity: Normal ROM, Pedal Edema (mild pedal edema) Neurological/Psych: Oriented x3 ED Course And Treatment - Laboratory Results Result Diagrams: 08/16/18 16:50 08/16/18 17:33 Lab Interpretation: Normal ECG: Interpreted By Me ECG Rhythm: Sinus Rhythm ECG Interpretation: Normal O2 Sat by Pulse Oximetry: 96 (RA) Pulse Ox Interpretation: Normal - Radiology CXR: Interpreted by Me CXR Interpretation: Yes: No Acute Disease Reevaluation Time: 18:35 Reassessment Condition: Unchanged - Physician Consult Information Outcome Of Conversation: 1829: d/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 d/c Agustín Lamb, [address], will plan thoracentesis in AM Medical Decision Making Medical Decision Making: Impression: Shortness of breath, pleural effusion Plan: -- Labs -- EKG -- CXR pleural effusions prob related to Spirocin, medicine for leukemia tx Alexis to tap effusions Dr Hendrickson to consult on Heme/Onc Disposition Doctor Will See Patient In The: Hospital Counseled Patient/Family Regarding: Studies Performed, Diagnosis - Disposition Disposition: HOSPITALIZED Disposition Time: 18:30 Condition: GOOD - Clinical Impression Clinical Impression: Pleural effusion, Leukemia - Scribe Statement The provider has reviewed the documentation as recorded by the Morgan Almanzar Provider Attestation: All medical record entries made by the Morgan were at my direction and personally dictated by me. I have reviewed the chart and agree that the record accurately reflects my personal performance of the history, physical exam, medical decision making, and the department course for this patient. I have also personally directed, reviewed, and agree with the discharge instructions and disposition.
[2018-08-16 16:53] LABS: BASO # 0.1 K/uL (0.0-0.2); BASO % 1.3 % (0.0-2.0); EOS # 0.2 K/uL (0.0-0.7); EOS % 2.4 % (0.0-4.0); HEMOGLOBIN 11.5 g/dL (12.0-18.0); LYMPH # 2.7 K/uL (1.0-4.3); LYMPH % 34.2 % (20.0-40.0); MEAN CELL VOLUME 92.4 fL (80.0-94.0); MEAN CORPUSCULAR HEMOGLOBIN 30.9 pg (27.0-31.0); MEAN CORPUSCULAR HGB CONC 33.5 g/dL (33.0-37.0); MEAN PLATELET VOLUME 7.7 fL (7.2-11.7); MONO # 0.5 K/uL (0.0-0.8); MONO % 6.8 % (0.0-10.0); NEUT # 4.3 K/uL (1.8-7.0); NEUT % 55.3 % (50.0-75.0); RBC 3.72 Mil/uL (4.40-5.90); WHITE BLOOD COUNT 7.7 K/uL (4.8-10.8)
[2018-08-16 17:02] LABS: INR 1.3; PROTHROMBIN TIME 14.6 SECONDS (9.7-12.2)
--- NOTE | 2018-08-16 17:38 | RAD ---
Date of service: 08/16/2018 HISTORY: SOB COMPARISON: Compare is made with the previous study dated 05/02/2018 TECHNIQUE: Chest PA and lateral FINDINGS: LUNGS: Bilateral lower lobe partial atelectasis noted likely due to pleural effusion larger on the left. [id number] pulmonary vascular congestion. PLEURA: Bilateral pleural effusions are again noted CARDIOVASCULAR: No aortic atherosclerotic calcification present. The cardiac silhouette is mildly enlarged. No pulmonary vascular congestion. OSSEOUS STRUCTURES: No significant abnormalities. VISUALIZED UPPER ABDOMEN: Normal. OTHER FINDINGS: None. IMPRESSION: Suspicious for bilateral pleural effusion associated with partial atelectasis of the lower lobes and possible mild cardiomegaly. [id number] pulmonary vascular congestion.
[2018-08-16 18:14] LABS: ALT/SGPT 32 U/L (21-72); AST/SGOT 37 U/L (17-59); BLOOD UREA NITROGEN 18 mg/dL (9-20); CALCIUM 8.9 mg/dl (8.6-10.4); GFR NON-AFRICAN AMERICAN > 60
[2018-08-16 18:15] LABS: ALB/GLOB RATIO 1.3 (1.0-2.1)
[2018-08-16 20:16] LABS: CK-MB 0.55 ng/mL (0.0-3.38); TROPONIN I 0.012 ng/mL (0.00-0.120)
[2018-08-16] MEDS: (Novolin R) Insulin Human Regular 100 units/ml vial SC SCH (21:14)
--- NOTE | 2018-08-16 23:54 | CP.PCM.HP ---
Past Patient History - Past Medical History & Family History Past Medical History?: Yes - Past Social History Smoking Status: Never Smoked - CARDIAC Hx Hypertension: Yes - PULMONARY Hx Respiratory Disorders: No - NEUROLOGICAL Hx Neurological Disorder: No - HEENT Hx HEENT Problems: No - RENAL Hx Chronic Kidney Disease: No - ENDOCRINE/METABOLIC Hx Endocrine Disorders: Yes Hx Diabetes Mellitus Type 2: Yes - HEMATOLOGICAL/ONCOLOGICAL Hx Blood Disorders: Yes (CML ) Hx Leukemia: Yes - INTEGUMENTARY Hx Dermatological Problems: No - MUSCULOSKELETAL/RHEUMATOLOGICAL Hx Falls: No - GASTROINTESTINAL Hx Gastrointestinal Disorders: Yes Other/Comment: hx of endoscopy - GENITOURINARY/GYNECOLOGICAL Hx Genitourinary Disorders: No - PSYCHIATRIC Hx Substance Use: No - SURGICAL HISTORY Hx Surgeries: No Other/Comment: no further information given by patient - ANESTHESIA Hx Anesthesia: Yes Hx Anesthesia Reactions: No Hx Malignant Hyperthermia: No Meds Allergies/Adverse Reactions: Allergies Allergy/AdvReac Type Severity Reaction Status Date / Time No Known Allergies Allergy Verified 08/16/18 15:51 Results - Vital Signs Recent Vital Signs: Last Vital Signs Temp 98.8 F 08/16/18 19:04 Pulse 80 08/16/18 19:04 Resp 20 08/16/18 19:04 BP 175/81 H 08/16/18 19:04 Pulse Ox 98 08/16/18 19:04 - Labs Result Diagrams: 08/16/18 16:50 08/16/18 17:33 Labs: Laboratory Results - last 24 hr 08/16/18 08/16/18 08/16/18 16:50 16:50 17:33 WBC 7.7 RBC 3.72 L Hgb 11.5 L Hct 34.4 L MCV 92.4 D MCH 30.9 MCHC 33.5 RDW 15.0 H Plt Count 366 MPV 7.7 Neut % (Auto) 55.3 Lymph % (Auto) 34.2 [place] % (Auto) 6.8 Eos % (Auto) 2.4 Baso % (Auto) 1.3 Neut # (Auto) 4.3 Lymph # (Auto) 2.7 [place] # (Auto) 0.5 Eos # (Auto) 0.2 Baso # (Auto) 0.1 PT 14.6 H INR 1.3 APTT 35 H Sodium 136 Potassium 4.0 Chloride 102 Carbon Dioxide 25 Anion Gap 13 BUN 18 Creatinine 1.0 Est GFR ( Amer) > 60 Est GFR (Non-Af Amer) > 60 POC Glucose (mg/dL) Random Glucose 134 H Calcium 8.9 Phosphorus 3.5 Magnesium 2.0 Total Bilirubin 0.4 AST 37 ALT 32 Alkaline Phosphatase 81 Total Creatine Kinase CK-MB (Mass) Troponin I Total Protein 7.1 Albumin 4.0 Globulin 3.1 Albumin/Globulin Ratio 1.3 08/16/18 08/16/18 19:48 21:12 WBC RBC Hgb Hct MCV MCH MCHC RDW Plt Count MPV Neut % (Auto) Lymph % (Auto) [place] % (Auto) Eos % (Auto) Baso % (Auto) Neut # (Auto) Lymph # (Auto) [place] # (Auto) Eos # (Auto) Baso # (Auto) PT INR APTT Sodium Potassium Chloride Carbon Dioxide Anion Gap BUN Creatinine Est GFR ( Amer) Est GFR (Non-Af Amer) POC Glucose (mg/dL) 120 H Random Glucose Calcium Phosphorus Magnesium Total Bilirubin AST ALT Alkaline Phosphatase Total Creatine Kinase 98 CK-MB (Mass) 0.55 Troponin I 0.0120 Total Protein Albumin Globulin Albumin/Globulin Ratio
[2018-08-17] MEDS ORDERED: Metoprolol 1 mg/ml Inj IVP ONE (01:09)
[2018-08-17] MEDS ORDERED: Metoprolol 1 mg/ml Inj IVP PRN (01:10)
[2018-08-17] MEDS ORDERED: Metoprolol 1 mg/ml Inj IVP STA (06:15)
--- NOTE | 2018-08-17 06:47 | HP ---
CHIEF COMPLAINT: Dyspnea x2 months. HISTORY OF PRESENT ILLNESS: This is a 63-year-old male with history of chronic myeloid leukemia, being followed up by Hematology/Oncology, and he is on chemotherapy on a regular basis. The patient has a prior history of hospitalization with edema and dyspnea. According to patient, he was on chemotherapy and being followed up by his private medical doctor and private oncologist. He also has diabetes, hypertension, and sleep apnea. He is compliant with diet, medication, and followup. He is reliable with his history and physical on admission. According to the patient, about two months ago, he started having leg swelling, dyspnea at rest, dyspnea on exertion, generalized weakness, difficulty walking. Initially, he underwent echocardiogram and stress test. Stress test was abnormal, and he underwent angiogram on his coronaries which was negative. Later on, he was found to have bilateral pleural effusion, and the patient was referred to emergency room. At that time until 04/2018 when the patient was admitted, he did not have any pleural effusion. The patient's chemotherapy was placed on hold, and he was referred to emergency room, and he was hospitalized. The patient denies any cough, sore throat, runny nose. He denies any nausea or vomiting. He denies any chest pain. He denies any abdominal pain. He denies any history of trauma or loss of consciousness. He denies any bruising, hematemesis. He denies any history of kidney problems in the past. He denies any history of blood clots in the past, and at that time, he denies any cough, sore throat, or runny nose. The patient had diabetes for 5 to 6 years, hypertension 5 to 6 years, morbidly obese, and he has leukemia and he is in remission. He has gained some extra weight also in the last few weeks. He denies taking any nonsteroidal antiinflammatory. PAST MEDICAL HISTORY: Chronic myeloid leukemia, diabetes, hypertension, morbid obesity, and sleep apnea. CURRENT MEDICATIONS: He is on Sprycel, glipizide, Januvia, Janumet, gabapentin, and Lasix. SOCIAL HISTORY: The patient is a nonsmoker, non-ETOH user. PHYSICAL EXAMINATION: GENERAL: An elderly male, in moderate respiratory distress. VITAL SIGNS: Blood pressure 175/81, pulse 80, respiratory rate 20, temperature 98.8. SKIN: Normal. No bruises. No purpura. No petechiae. HEENT: Atraumatic, normocephalic. Negative pallor. Negative jaundice. Extraocular movements are intact. NECK: Supple. No JVD. Using accessory muscles. No thyromegaly. No carotid bruits. CHEST WALL: Bilateral symmetrical expansion. No deformity. LUNGS: Bilateral decreased air entry in the bases with no crackle. No rhonchi. CARDIOVASCULAR SYSTEM: PMI not localized. S1 and S2 regular. ABDOMEN: Soft and nontender. Bowel sounds are positive. RECTAL: No masses. No bleeding. EXTREMITIES: No clubbing, cyanosis; +2 nonpitting edema. CENTRAL NERVOUS SYSTEM: Awake, alert, and oriented x3. Cranial nerves II through XII are normal. Power 5/5 x4. Plantars are downgoing. ASSESSMENT: 1. Dyspnea with bilateral pleural effusion. Etiology of pleural effusion is unknown, it could be malignant pleural effusion due to chronic myeloid leukemia versus it could be a second malignancy. It could be a parapneumonic effusion though less likely to be tuberculosis and less likely to be due to hypoalbuminemia. 2. Morbid obesity. 3. Sleep apnea. 4. Diabetes. 5. Hypertension. PLAN: Admit. Detailed orders written. The patient has been seen and examined. Salvatore Ferro MD
[2018-08-17] MEDS: (Novolin R) Insulin Human Regular 100 units/ml vial SC SCH ×4 (07:22→22:26)
[2018-08-17] MEDS: Sacubitril/Valsartan 49-51 Tab PO SCH (09:40)
[2018-08-17] MEDS: Enoxaparin 40 mg Syringe SC SCH (09:40)
--- NOTE | 2018-08-17 16:20 | CP.PCM.CON ---
History of Present Illness - History of Present Illness History of Present Illness: reason for consultation: shortness of breath/pleural effusion 63-year-old male with history of leukemia was referred by his oncologist for worsening shortness of breath. Patient recently had CAT scan of the chest done consistent with large pleural effusion. Patient complaining of dyspnea on minimal exertion and could hardly walk few steps before he gets shortness of breath. Denies cough, denies fever chills, denies chest pain.. Patient being treated for leukemiaand taking sprycel for the last 5 years Review of Systems - Review of Systems All systems: reviewed and no additional remarkable complaints except (shortness of breath) Past Patient History - Past Medical History & Family History Past Medical History?: Yes - Past Social History Smoking Status: Never Smoked - CARDIAC Hx Hypertension: Yes - PULMONARY Hx Respiratory Disorders: No - NEUROLOGICAL Hx Neurological Disorder: No - HEENT Hx HEENT Problems: No - RENAL Hx Chronic Kidney Disease: No - ENDOCRINE/METABOLIC Hx Endocrine Disorders: Yes Hx Diabetes Mellitus Type 2: Yes - HEMATOLOGICAL/ONCOLOGICAL Hx Blood Disorders: Yes (CML ) Hx Leukemia: Yes - INTEGUMENTARY Hx Dermatological Problems: No - MUSCULOSKELETAL/RHEUMATOLOGICAL Hx Falls: No - GASTROINTESTINAL Hx Gastrointestinal Disorders: Yes Other/Comment: hx of endoscopy - GENITOURINARY/GYNECOLOGICAL Hx Genitourinary Disorders: No - PSYCHIATRIC Hx Substance Use: No - SURGICAL HISTORY Hx Surgeries: No Other/Comment: no further information given by patient - ANESTHESIA Hx Anesthesia: Yes Hx Anesthesia Reactions: No Hx Malignant Hyperthermia: No Meds Allergies/Adverse Reactions: Allergies Allergy/AdvReac Type Severity Reaction Status Date / Time No Known Allergies Allergy Verified 08/16/18 15:51 - Medications Medications: Current Medications Enoxaparin Sodium (Lovenox) 40 mg SC DAILY [facility] Last Admin: 08/17/18 09:40 Dose: 40 mg Furosemide (Lasix) 40 mg PO DAILY [facility] Last Admin: 08/17/18 09:40 Dose: 40 mg Gabapentin (Neurontin) 300 mg PO [facility] Glimepiride (Amaryl) 2 mg PO ACB [facility] Last Admin: 08/17/18 08:43 Dose: 2 mg Hydralazine HCl (Apresoline) 100 mg PO BID [facility] Last Admin: 08/17/18 09:40 Dose: 100 mg Insulin Human Regular (Novolin R) 0 unit SC [facility]; Protocol Last Admin: 08/17/18 12:11 Dose: Not Given Metformin [facility] (Gluc[facility]) [facility] Last Admin: 08/17/18 08:46 Dose: Not Given Metoprolol Tartrate (Lopressor) 5 mg IVP ONCE PRN PRN Reason: Systolic Blood Pressure Metoprolol Tartrate (Lopressor) 100 mg PO BID [facility] Last Admin: 08/17/18 09:40 Dose: 100 mg Sacubitril/Valsartan (Entresto 49 Mg-51 Mg) 1 tab PO DAILY [facility] Last Admin: 08/17/18 09:40 Dose: 1 tab Sitagliptin Phosphate (Januvia) 50 mg PO BID [facility] Last Admin: 08/17/18 09:40 Dose: 50 mg Physical Exam - Head Exam Head Exam: ATRAUMATIC, NORMOCEPHALIC - ENT Exam ENT Exam: Mucous Membranes Moist - Neck Exam Neck exam: Positive for: Normal Inspection - Respiratory Exam Respiratory Exam: Decreased Breath Sounds - Cardiovascular Exam Cardiovascular Exam: REGULAR RHYTHM - GI/Abdominal Exam GI & Abdominal Exam: Normal Bowel Sounds, Soft Results - Vital Signs Recent Vital Signs: Last Vital Signs Temp 98.2 F 08/17/18 07:05 Pulse 82 08/17/18 12:00 Resp 20 08/17/18 07:05 BP 169/75 H 08/17/18 09:40 Pulse Ox 97 08/17/18 07:05 - Labs Result Diagrams: 08/16/18 16:50 08/16/18 17:33 Labs: Laboratory Results - last 24 hr 08/16/18 08/16/18 08/16/18 16:50 16:50 17:33 WBC 7.7 RBC 3.72 L Hgb 11.5 L Hct 34.4 L MCV 92.4 D MCH 30.9 MCHC 33.5 RDW 15.0 H Plt Count 366 MPV 7.7 Neut % (Auto) 55.3 Lymph % (Auto) 34.2 [place] % (Auto) 6.8 Eos % (Auto) 2.4 Baso % (Auto) 1.3 Neut # (Auto) 4.3 Lymph # (Auto) 2.7 [place] # (Auto) 0.5 Eos # (Auto) 0.2 Baso # (Auto) 0.1 PT 14.6 H INR 1.3 APTT 35 H Sodium 136 Potassium 4.0 Chloride 102 Carbon Dioxide 25 Anion Gap 13 BUN 18 Creatinine 1.0 Est GFR ( Amer) > 60 Est GFR (Non-Af Amer) > 60 POC Glucose (mg/dL) Random Glucose 134 H Calcium 8.9 Phosphorus 3.5 Magnesium 2.0 Total Bilirubin 0.4 AST 37 ALT 32 Alkaline Phosphatase 81 Total Creatine Kinase CK-MB (Mass) Troponin I Total Protein 7.1 Albumin 4.0 Globulin 3.1 Albumin/Globulin Ratio 1.3 08/16/18 08/16/18 08/17/18 19:48 21:12 06:22 WBC RBC Hgb Hct MCV MCH MCHC RDW Plt Count MPV Neut % (Auto) Lymph % (Auto) [place] % (Auto) Eos % (Auto) Baso % (Auto) Neut # (Auto) Lymph # (Auto) [place] # (Auto) Eos # (Auto) Baso # (Auto) PT INR APTT Sodium Potassium Chloride Carbon Dioxide Anion Gap BUN Creatinine Est GFR ( Amer) Est GFR (Non-Af Amer) POC Glucose (mg/dL) 120 H 100 Random Glucose Calcium Phosphorus Magnesium Total Bilirubin AST ALT Alkaline Phosphatase Total Creatine Kinase 98 CK-MB (Mass) 0.55 Troponin I 0.0120 Total Protein Albumin Globulin Albumin/Globulin Ratio 08/17/18 11:33 WBC RBC Hgb Hct MCV MCH MCHC RDW Plt Count MPV Neut % (Auto) Lymph % (Auto) [place] % (Auto) Eos % (Auto) Baso % (Auto) Neut # (Auto) Lymph # (Auto) [place] # (Auto) Eos # (Auto) Baso # (Auto) PT INR APTT Sodium Potassium Chloride Carbon Dioxide Anion Gap BUN Creatinine Est GFR ( Amer) Est GFR (Non-Af Amer) POC Glucose (mg/dL) 147 H Random Glucose Calcium Phosphorus Magnesium Total Bilirubin AST ALT Alkaline Phosphatase Total Creatine Kinase CK-MB (Mass) Troponin I Total Protein Albumin Globulin Albumin/Globulin Ratio Assessment & Plan (1) Pleural effusion Status: Acute Comment: most likely secondary to SPRYCEL. Rule out lymphatic obstruction. Thoracentesis procedure done after obtaining consent from patient explaining risks and benefits. 1600 cc of turbid fluid removed
--- NOTE | 2018-08-17 17:02 | RAD ---
Chest x-ray single frontal view HISTORY: Status post thoracentesis. COMPARISON: 08/16/2018 Findings: Interval decrease in now a small left pleural effusion. Moderate venous congestion. Cardiomegaly. Small right pleural effusion. Degenerative changes in the spine and shoulders. Impression: Interval decrease in now a small left pleural effusion. Moderate venous congestion. Cardiomegaly. Small right pleural effusion.
--- NOTE | 2018-08-17 17:15 | US ---
Limited left yao thorax ultrasound HISTORY: Pleural effusion. COMPARISON: X-ray dated 08/16/2018 TECHNIQUE: Limited left yao thorax ultrasound was performed. FINDINGS: Left pleural effusion was marked for thoracentesis to be performed by Dr. Espinoza. IMPRESSION: Left pleural effusion.
[2018-08-17 18:00] LABS: BODY FLUID TYPE PLEURAL/THORACENTESI
[2018-08-17 18:52] LABS: BF GROSS APPEARANCE CLOUDY (CLEAR)
[2018-08-17 19:00] LABS: BODY FLUID MONO/MACROPHAGE 5 % (0-0)
[2018-08-17] MEDS: Promethazine/Cod 6.25mg-10mg/5ml Syr UD PO PRN (19:01)
--- NOTE | 2018-08-17 20:23 | CP.PCM.PN ---
Subjective - Subjective Subjective: dictated Objective - Vital Signs/Intake and Output Vital Signs (last 24 hours): Temp Pulse Resp BP Pulse Ox 97.9 F 80 20 163/74 H 93 L 08/17/18 15:25 08/17/18 15:25 08/17/18 15:25 08/17/18 15:25 08/17/18 15:25 Intake and Output: 08/17/18 08/18/18 18:59 06:59 Intake Total 520 Balance 520 - Medications Medications: Current Medications Enoxaparin Sodium (Lovenox) 40 mg SC DAILY [facility] Last Admin: 08/17/18 09:40 Dose: 40 mg Furosemide (Lasix) 40 mg PO DAILY [facility] Last Admin: 08/17/18 09:40 Dose: 40 mg Gabapentin (Neurontin) 300 mg PO HS [facility] Glimepiride (Amaryl) 2 mg PO ACB [facility] Last Admin: 08/17/18 08:43 Dose: 2 mg Hydralazine HCl (Apresoline) 100 mg PO BID [facility] Last Admin: 08/17/18 18:06 Dose: 100 mg Insulin Human Regular (Novolin R) 0 unit SC [facility]; Protocol Last Admin: 08/17/18 18:05 Dose: Not Given [facility] Last Admin: 08/17/18 18:05 Dose: Not Given Metoprolol Tartrate (Lopressor) 5 mg IVP ONCE PRN PRN Reason: Systolic Blood Pressure Metoprolol Tartrate (Lopressor) 100 mg PO BID [facility] Last Admin: 08/17/18 18:07 Dose: 100 mg Promethazine HCl/Codeine (Phenergan/Codeine Oral Syrup) 5 ml PO Q6 PRN PRN Reason: Cough Last Admin: 08/17/18 19:01 Dose: 5 ml Sacubitril/Valsartan (Entresto 49 Mg-51 Mg) 1 tab PO DAILY [facility] Last Admin: 08/17/18 09:40 Dose: 1 tab Sitagliptin Phosphate (Januvia) 50 mg PO BID [facility] Last Admin: 08/17/18 18:05 Dose: Not Given - Labs Labs: 08/16/18 16:50 08/16/18 17:33 PT 14.6 SECONDS (9.7-12.2) H 11/30/18 16:50 INR 1.3 08/16/18 16:50 APTT 35 SECONDS (21-34) H 08/16/18 16:50
[2018-08-18] MEDS: Promethazine/Cod 6.25mg-10mg/5ml Syr UD PO PRN ×4 (00:45→19:11)
--- NOTE | 2018-08-18 02:10 | PN ---
DATE: 08/17/2018 SUBJECTIVE: The patient, Jose, is afebrile. He is status post thoracentesis. The patient's results of thoracentesis are coming back. He undergoing ultrasound-guided thoracentesis. No fever. No chills. He is still dyspneic. PHYSICAL EXAMINATION VITAL SIGNS: Blood pressure , pulse 80, respiratory rate 20, temperature 97.9. LUNGS: Bilateral decreased air entry. No rales. CARDIOVASCULAR SYSTEM: S1 and S2 regular. ABDOMEN: Soft. ASSESSMENT: 1. Pleural effusion, rule out malignant pleural effusion versus parapneumonic. No tuberculous effusion. 2. Hypertension. 3. Diabetes. 4. Obstructive sleep apnea. PLAN: Follow results of thoracentesis. Follow up with Pulmonary. Monitor the patient. Salvatore Ferro MD
[2018-08-18] MEDS: (Novolin R) Insulin Human Regular 100 units/ml vial SC SCH ×4 (07:43→21:54)
[2018-08-18 08:21] LABS: BASO # 0.1 K/uL (0.0-0.2); BASO % 1.1 % (0.0-2.0); EOS # 0.2 K/uL (0.0-0.7); EOS % 2.9 % (0.0-4.0); HEMOGLOBIN 10.8 g/dL (12.0-18.0); LYMPH # 2.5 K/uL (1.0-4.3); LYMPH % 30.4 % (20.0-40.0); MEAN CELL VOLUME 92.8 fL (80.0-94.0); MEAN CORPUSCULAR HEMOGLOBIN 31.5 pg (27.0-31.0); MEAN PLATELET VOLUME 8.5 fL (7.2-11.7); MONO # 0.6 K/uL (0.0-0.8); MONO % 6.7 % (0.0-10.0); NEUT # 4.9 K/uL (1.8-7.0); NEUT % 58.9 % (50.0-75.0); NRBC % 0.1 % (0.0-2.0); RBC 3.41 Mil/uL (4.40-5.90); RED CELL DISTRIBUTION WIDTH 15.2 % (11.5-14.5); WHITE BLOOD COUNT 8.3 K/uL (4.8-10.8)
[2018-08-18 09:04] LABS: ALB/GLOB RATIO 1.1 (1.0-2.1); ALBUMIN 3.4 g/dL (3.5-5.0); ALT/SGPT 24 U/L (21-72); AST/SGOT 50 U/L (17-59); BLOOD UREA NITROGEN 19 mg/dL (9-20); CALCIUM 8.7 mg/dl (8.6-10.4); GFR NON-AFRICAN AMERICAN > 60
[2018-08-18] MEDS: Sacubitril/Valsartan 49-51 Tab PO SCH (09:41)
[2018-08-18] MEDS: Enoxaparin 40 mg Syringe SC SCH (09:41)
--- NOTE | 2018-08-18 21:44 | CP.PCM.PN ---
Subjective - Subjective Subjective: dictated Objective - Vital Signs/Intake and Output Vital Signs (last 24 hours): Temp Pulse Resp BP Pulse Ox 98.0 F 78 20 144/65 97 08/18/18 17:34 08/18/18 17:43 08/18/18 17:34 08/18/18 17:43 08/18/18 17:34 Intake and Output: 08/18/1818 18:59 06:59 Intake Total 400 Balance 400 - Medications Medications: Current Medications Enoxaparin Sodium (Lovenox) 40 mg SC DAILY [facility] Last Admin: 08/18/18 09:41 Dose: 40 mg Furosemide (Lasix) 40 mg PO DAILY [facility] Last Admin: 08/18/18 09:41 Dose: 40 mg Gabapentin (Neurontin) 300 mg PO HS [facility] Last Admin: 08/17/18 21:34 Dose: 300 mg Glimepiride (Amaryl) 2 mg PO ACB [facility] Last Admin: 08/18/18 07:43 Dose: Not Given Hydralazine HCl (Apresoline) 100 mg PO BID [facility] Last Admin: 08/18/18 17:42 Dose: 100 mg Insulin Human Regular (Novolin R) 0 unit SC [facility]; Protocol Last Admin: 08/18/18 16:43 Dose: Not Given [facility] Last Admin: 08/18/18 17:00 Dose: Not Given Metoprolol Tartrate (Lopressor) 5 mg IVP ONCE PRN PRN Reason: Systolic Blood Pressure Metoprolol Tartrate (Lopressor) 100 mg PO BID [facility] Last Admin: 08/18/18 17:43 Dose: 100 mg Promethazine HCl/Codeine (Phenergan/Codeine Oral Syrup) 5 ml PO Q6 PRN PRN Reason: Cough Last Admin: 08/18/18 19:11 Dose: 5 ml Sacubitril/Valsartan (Entresto 49 Mg-51 Mg) 1 tab PO DAILY [facility] Last Admin: 08/18/18 09:41 Dose: 1 tab Sitagliptin Phosphate (Januvia) 50 mg PO BID [facility] Last Admin: 08/18/18 17:48 Dose: Not Given - Labs Labs: 08/18/18 08:10 08/18/18 08:10 PT 14.6 SECONDS (9.7-12.2) H 11/30/18 16:50 INR 1.3 08/16/18 16:50 APTT 35 SECONDS (21-34) H 08/16/18 16:50
[2018-08-19] MEDS: Promethazine/Cod 6.25mg-10mg/5ml Syr UD PO PRN ×5 (01:08→18:30)
--- NOTE | 2018-08-19 02:56 | PN ---
DATE: 08/18/2018 SUBJECTIVE: The patient, Jose, is status post thoracentesis. He is afebrile, less short of breath, less cough, less wheezing. PHYSICAL EXAMINATION: VITAL SIGNS: Blood pressure 144/65, pulse 78, respiratory rate 20, temperature 98. LUNGS: Clear. Decreased air entry. CARDIOVASCULAR SYSTEM: S1 and S2 are regular. ABDOMEN: Soft. ASSESSMENT: 1. Bilateral pleural effusion, status post thoracentesis, pending results of the fluid. 2. Hypertension. 3. Diabetes. 4. Morbid obesity with sleep apnea. PLAN: Continue BiPAP. Monitor the patient. Salvatore Ferro MD
[2018-08-19] MEDS: (Novolin R) Insulin Human Regular 100 units/ml vial SC SCH ×4 (08:07→22:03)
[2018-08-19] MEDS: Sacubitril/Valsartan 49-51 Tab PO SCH (09:19)
[2018-08-19] MEDS: Enoxaparin 40 mg Syringe SC SCH (09:20)
--- NOTE | 2018-08-19 12:15 | PCM.SURG1 ---
Surgeon's Initial Post Op Note - Surgeon's Notes Surgeon: Alvaro Iverson MD Tractor Mechanic Apprentice: NONE Type of Anesthesia: Local Pre-Operative Diagnosis: Pleural effusion, dyspnea Operative Findings: US showed large right pleural effusion Post-Operative Diagnosis: Pleural effusion, dyspnea Operation Performed: US guided right thoracentesis Specimen/Specimens Removed: 1400 cc of yellow fluid Estimated Blood Loss: EBL {In ML}: 0 Blood Products Given: N/A Drains Used: No Drains Post-Op Condition: Fair Date of Surgery/Procedure: 08/19/18 Time of Surgery/Procedure: 12:10
--- NOTE | 2018-08-19 14:19 | RAD ---
HISTORY: Status post right thoracentesis COMPARISON: Chest x-ray performed 08/19/18 TECHNIQUE: Chest, one view. FINDINGS: Examination limited by habitus. LUNGS: Left lower lobe consolidation and/or pleural effusion. Probable trace right pleural effusion. No definite pneumothorax . CARDIOVASCULAR: Marked cardiomegaly. No significant atherosclerotic calcification present. OSSEOUS STRUCTURES: Degenerative changes. VISUALIZED UPPER ABDOMEN: Unremarkable. OTHER FINDINGS: None. IMPRESSION: Left lower lobe consolidation and/or pleural effusion. Probable trace right pleural effusion. Marked cardiomegaly.
--- NOTE | 2018-08-19 14:20 | RAD ---
HISTORY: crackles COMPARISON: Chest x-ray performed 08/17/18 TECHNIQUE: Chest, one view. FINDINGS: Examination limited by habitus. LUNGS: Moderate vascular congestion. Small right pleural effusion. Moderate left pleural effusion. Bibasilar atelectasis/pneumonia. CARDIOVASCULAR: Marked cardiomegaly. No significant atherosclerotic calcification present. OSSEOUS STRUCTURES: Degenerative changes. VISUALIZED UPPER ABDOMEN: Unremarkable. OTHER FINDINGS: None. IMPRESSION: Moderate vascular congestion. Small right pleural effusion. Moderate left pleural effusion. Bibasilar atelectasis/pneumonia. Marked cardiomegaly.
[2018-08-19 17:10] VITALS: RESP 20
--- NOTE | 2018-08-19 17:58 | CP.PCM.PN ---
Subjective - Date & Time of Evaluation Date of Evaluation: 08/19/18 Time of Evaluation: 10:40 - Subjective Subjective: Patient seen and examined at bedside, lying down comfortably. Afebrile and in no acute distress. SOB is improving. Course crackles on left side. No lung sounds on right due to fluid buildup. Hgb: 10.8 Hct: 31.7 Glucose: 117 Thoracentesis 08/16 - 1600 cc of turbid fluid removed. Pleural fluid 08/17 - no growth after 24 hours. Gram stain showed few polymorphonuclear WBCs and no organisms seen. Thoracentesis Done today 1400 cc off turbid fluid CXR 08/19 - waiting on report Objective - Vital Signs/Intake and Output Vital Signs (last 24 hours): Temp Pulse Resp BP Pulse Ox 98.1 F 74 20 118/63 96 08/19/18 16:00 08/19/18 16:00 08/19/18 16:00 08/19/18 16:00 08/19/18 16:00 Intake and Output: 08/19/18 08/19/18 06:59 18:59 Intake Total 10 Balance 10 - Medications Medications: Current Medications Enoxaparin Sodium (Lovenox) 40 mg SC DAILY [facility] Last Admin: 08/19/18 09:20 Dose: 40 mg Furosemide (Lasix) 40 mg PO DAILY [facility] Last Admin: 08/19/18 09:20 Dose: 40 mg Gabapentin (Neurontin) 300 mg PO HS [facility] Last Admin: 08/18/18 21:54 Dose: 300 mg Glimepiride (Amaryl) 2 mg PO ACB [facility] Last Admin: 08/19/18 08:08 Dose: Not Given Hydralazine HCl (Apresoline) 100 mg PO BID [facility] Last Admin: 08/19/18 09:19 Dose: 100 mg Insulin Human Regular (Novolin R) 0 unit SC [facility]; Protocol Last Admin: 08/19/18 11:56 Dose: Not Given [facility] Last Admin: 08/19/18 08:08 Dose: Not Given Metoprolol Tartrate (Lopressor) 5 mg IVP ONCE PRN PRN Reason: Systolic Blood Pressure Metoprolol Tartrate (Lopressor) 100 mg PO BID [facility] Last Admin: 08/19/18 09:19 Dose: 100 mg Promethazine HCl/Codeine (Phenergan/Codeine Oral Syrup) 5 ml PO Q6 PRN PRN Reason: Cough Last Admin: 08/19/18 12:51 Dose: 5 ml Sacubitril/Valsartan (Entresto 49 Mg-51 Mg) 1 tab PO DAILY [facility] Last Admin: 08/19/18 09:19 Dose: 1 tab Sitagliptin Phosphate (Januvia) 50 mg PO BID [facility] Last Admin: 08/19/18 09:19 Dose: 50 mg - Labs Labs: 08/18/18 08:10 08/18/18 08:10 PT 14.6 SECONDS (9.7-12.2) H 08/16/18 16:50 INR 1.3 08/16/18 16:50 APTT 35 SECONDS (21-34) H 08/16/18 16:50 Assessment and Plan (1) Pleural effusion Status: Acute
--- NOTE | 2018-08-19 21:53 | CP.PCM.PN ---
Subjective - Subjective Subjective: dictated Objective - Vital Signs/Intake and Output Vital Signs (last 24 hours): Temp Pulse Resp BP Pulse Ox 98.1 F 72 20 118/63 96 08/19/18 16:00 08/19/18 16:30 08/19/18 16:00 18 16:00 08/19/18 16:00 - Medications Medications: Current Medications Enoxaparin Sodium (Lovenox) 40 mg SC DAILY [facility] Last Admin: 08/19/18 09:20 Dose: 40 mg Furosemide (Lasix) 40 mg PO DAILY [facility] Last Admin: 08/19/18 09:20 Dose: 40 mg Gabapentin (Neurontin) 300 mg PO HS [facility] Last Admin: 08/18/18 21:54 Dose: 300 mg Glimepiride (Amaryl) 2 mg PO ACB [facility] Last Admin: 08/19/18 08:08 Dose: Not Given Hydralazine HCl (Apresoline) 100 mg PO BID [facility] Last Admin: 08/19/18 18:28 Dose: 100 mg Insulin Human Regular (Novolin R) 0 unit SC [facility]; Protocol Last Admin: 08/19/18 16:30 Dose: Not Given [facility] Last Admin: 08/19/18 18:00 Dose: 1,000 mg Metoprolol Tartrate (Lopressor) 5 mg IVP ONCE PRN PRN Reason: Systolic Blood Pressure Metoprolol Tartrate (Lopressor) 100 mg PO BID [facility] Last Admin: 08/19/18 18:29 Dose: 100 mg Promethazine HCl/Codeine (Phenergan/Codeine Oral Syrup) 5 ml PO Q6 PRN PRN Reason: Cough Last Admin: 08/19/18 18:30 Dose: 5 ml Sacubitril/Valsartan (Entresto 49 Mg-51 Mg) 1 tab PO DAILY [facility] Last Admin: 08/19/18 09:19 Dose: 1 tab Sitagliptin Phosphate (Januvia) 50 mg PO BID [facility] Last Admin: 08/19/18 18:30 Dose: 50 mg - Labs Labs: 08/18/18 08:10 08/18/18 08:10 PT 14.6 SECONDS (9.7-12.2) H 08/16/18 16:50 INR 1.3 08/16/18 16:50 APTT 35 SECONDS (21-34) H 08/16/18 16:50
[2018-08-20] MEDS: Promethazine/Cod 6.25mg-10mg/5ml Syr UD PO PRN ×3 (00:23→12:49)
--- NOTE | 2018-08-20 00:53 | PN ---
DATE: 08/19/2018 SUBJECTIVE: The patient is afebrile. No shortness of breath. No chest pain. PHYSICAL EXAMINATION: VITAL SIGNS: Blood pressure 109/60, pulse 74, respiratory rate 18, and temperature 98.2. LUNGS: Decreased air entry. CARDIOVASCULAR SYSTEM: S1 and S2 regular. ABDOMEN: Soft. ASSESSMENT: 1. Bilateral pleural effusion due to chemotherapy to the patient. 2. Hypertension. 3. Morbid obesity with sleep apnea. 4. Diabetes. PLAN: I discussed the case with acid bleacher, and the patient will hold chemotherapy for one month. Monitor the patient. Salvatore Ferro MD
[2018-08-20 07:56] VITALS: PULSE 82; TEMP 97.8; O2SAT 96
[2018-08-20] MEDS: (Novolin R) Insulin Human Regular 100 units/ml vial SC SCH ×2 (08:00→11:45)
[2018-08-20] MEDS: Sacubitril/Valsartan 49-51 Tab PO SCH (09:40)
[2018-08-20] MEDS: Enoxaparin 40 mg Syringe SC SCH (09:40)
[2018-08-20 09:43] VITALS: BP 117/64
[2018-08-20] MEDS ORDERED: Naphazoline-Pheniramine Ophth Soln OP PRN (13:47)
--- NOTE | 2018-08-20 13:54 | US ---
PROCEDURE: Date of procedure: 08/19/2018 Procedure: 1. Ultrasound-guided Right thoracentesis, CPT 10907 Medications: 5cc 1% Lidocaine HISTORY: Right pleural effusion, shortness of breath TECHNIQUE: Following informed consent ,the Patients' right chest was marked. Procedure time-out was called, and the patient was placed in the sitting position and limited ultrasound showed a large right effusion. The patient's right back was prepped and draped in the usual sterile fashion. After the skin was anesthetized with lidocaine, a drainage catheter was advanced under ultrasound guidance into the pleural space. Ultrasound-guided thoracentesis was performed. A total of 1400 cubic centimeters of straw-colored fluid removed without complication. A Xeroform dressing was applied. IMPRESSION: Ultrasound guided Right thoracentesis. There were no immediate complications.
[2018-08-20] MEDS ORDERED: Naphazoline-Pheniramine Ophth Soln OS PRN (14:00)
[2018-08-20 14:32] LABS: BASO # 0.1 K/uL (0.0-0.2); BASO % 1.2 % (0.0-2.0); EOS # 0.5 K/uL (0.0-0.7); HEMOGLOBIN 11.4 g/dL (12.0-18.0); LYMPH # 2.1 K/uL (1.0-4.3); LYMPH % 27.3 % (20.0-40.0); MEAN CELL VOLUME 93.8 fL (80.0-94.0); MEAN CORPUSCULAR HEMOGLOBIN 31.7 pg (27.0-31.0); MEAN CORPUSCULAR HGB CONC 33.8 g/dL (33.0-37.0); MEAN PLATELET VOLUME 8.3 fL (7.2-11.7); MONO # 0.6 K/uL (0.0-0.8); MONO % 7.8 % (0.0-10.0); NEUT # 4.5 K/uL (1.8-7.0); NEUT % 57.7 % (50.0-75.0); NRBC % 0.1 % (0.0-2.0); RBC 3.61 Mil/uL (4.40-5.90); RED CELL DISTRIBUTION WIDTH 15.3 % (11.5-14.5); WHITE BLOOD COUNT 7.7 K/uL (4.8-10.8)
[2018-08-20 14:57] LABS: BLOOD UREA NITROGEN 21 mg/dL (9-20); CALCIUM 8.6 mg/dl (8.6-10.4); GFR NON-AFRICAN AMERICAN > 60
--- NOTE | 2018-08-20 16:13 | CP.PCM.PN ---
Subjective - Date & Time of Evaluation Date of Evaluation: 08/20/18 Time of Evaluation: 12:00 - Subjective Subjective: patient seen today denies any chest pain, sob, abdominal pain, N/V a febrile oob ambulating the hallway , no sob noted spo2 remains 93% upon ambulation Objective - Vital Signs/Intake and Output Vital Signs (last 24 hours): Temp Pulse Resp BP Pulse Ox 97.8 F 82 20 117/64 96 08/20/18 07:55 08/20/18 07:55 08/20/18 07:55 08/20/18 09:39 08/20/18 07:55 Intake and Output: 08/20/18 08/20/18 06:59 18:59 Intake Total 100 Output Total 100 Balance 0 - Medications Medications: Current Medications Enoxaparin Sodium (Lovenox) 40 mg SC DAILY [facility] Last Admin: 08/20/18 09:40 Dose: 40 mg Furosemide (Lasix) 40 mg PO DAILY [facility] Last Admin: 08/20/18 09:39 Dose: 40 mg Gabapentin (Neurontin) 300 mg PO HS [facility] Last Admin: 08/19/18 22:03 Dose: 300 mg Glimepiride (Amaryl) 2 mg PO ACB [facility] Last Admin: 08/20/18 07:41 Dose: Not Given Hydralazine HCl (Apresoline) 100 mg PO BID [facility] Last Admin: 08/20/18 09:39 Dose: 100 mg Insulin Human Regular (Novolin R) 0 unit SC [facility]; Protocol Last Admin: 08/20/18 11:45 Dose: Not Given [facility] Last Admin: 08/20/18 07:41 Dose: Not Given Metoprolol Tartrate (Lopressor) 5 mg IVP ONCE PRN PRN Reason: Systolic Blood Pressure Metoprolol Tartrate (Lopressor) 100 mg PO BID [facility] Last Admin: 08/20/18 09:40 Dose: 100 mg Naphazoline HCl/Pheniramine Maleate (Naphcon-A Opht) 1 ml OS Q4 PRN PRN Reason: Allergy symptoms Promethazine HCl/Codeine (Phenergan/Codeine Oral Syrup) 5 ml PO Q6 PRN PRN Reason: Cough Last Admin: 08/20/18 12:49 Dose: 5 ml Sacubitril/Valsartan (Entresto 49 Mg-51 Mg) 1 tab PO DAILY [facility] Last Admin: 08/20/18 09:40 Dose: 1 tab Sitagliptin Phosphate (Januvia) 50 mg PO BID [facility] Last Admin: 08/20/18 09:40 Dose: 50 mg - Labs Labs: 08/20/18 14:13 08/20/18 14:13 PT 14.6 SECONDS (9.7-12.2) H 08/16/18 16:50 INR 1.3 08/16/18 16:50 APTT 35 SECONDS (21-34) H 08/16/18 16:50 Assessment and Plan - Assessment and Plan (Free Text) Assessment: A/P 63yo male, history of leukemia, sent to the ED by Dr. Hendrickson and Dr. Morrison due to shortness of breath and bilateral pleural effusions. s/p US guided right thoracentesis 1400 cc removed D/w Dr. Ferro, cleared for discharge home today and f/u with Dr. Topete. chace and Dr. Espinoza office for f/u visi t discharge plan discussed with patient , who understands and agrees with plan
--- NOTE | 2018-08-20 17:41 | CP.PCM.PN ---
Subjective - Date & Time of Evaluation Date of Evaluation: 08/20/18 Time of Evaluation: 12:20 - Subjective Subjective: Patient seen and examined at bedside, lying down comfortably. Afebrile and in no acute distress. Denies cough, chest pain, fever/chills SOB is improving CXR (08/19/18): Left lower lobe consolidation and/or pleural effusion. Probable trace right pleural effusion. Marked cardiomegaly. IR (Dr. Iverson) performed US guided right thoracentesis yesterday (08/19/18). Post op diagnosis: pleural effusion, dyspnea Objective - Vital Signs/Intake and Output Vital Signs (last 24 hours): Temp Pulse Resp BP Pulse Ox 97.8 F 82 20 117/64 96 08/20/18 07:55 08/20/18 07:55 08/20/18 07:55 08/20/18 09:39 08/20/18 07:55 Intake and Output: 08/20/18 08/20/18 06:59 18:59 Intake Total 100 Output Total 100 Balance 0 - Labs Labs: 08/20/18 14:13 08/20/18 14:13 PT 14.6 SECONDS (9.7-12.2) H 08/16/18 16:50 INR 1.3 08/16/18 16:50 APTT 35 SECONDS (21-34) H 08/16/18 16:50 Assessment and Plan (1) Pleural effusion Status: Acute
--- NOTE | 2018-08-21 00:24 | CP.PCM.DIS ---
Provider - Provider Date of Admission: 08/16/18 17:57 Attending physician: Salvatore Ferro MD Consults: 08/16/18 18:45 Pulmonology Consult Routine Comment: Consulting Provider: Prince Espinoza Consulting Physician: Prince Espinoza Reason for Consult: pl.effusion Hospital Course - Lab Results Lab Results: Micro Results 08/17/18 17:15 Pleural Fluid Gram Stain - Final 08/17/18 17:15 Pleural Fluid Body Fluid Culture - Preliminary NO GROWTH AFTER 3 DAYS Most Recent Lab Values WBC 7.7 K/uL (4.8-10.8) 08/20/18 14:13 RBC 3.61 Mil/uL (4.40-5.90) L 08/20/18 14:13 Hgb 11.4 g/dL (12.0-18.0) L 08/20/18 14:13 Hct 33.8 % (35.0-51.0) L 08/20/18 14:13 MCV 93.8 fL (80.0-94.0) 08/20/18 14:13 MCH 31.7 pg (27.0-31.0) H 08/20/18 14:13 MCHC 33.8 g/dL (33.0-37.0) 08/20/18 14:13 RDW 15.3 % (11.5-14.5) H 08/20/18 14:13 Plt Count 341 K/uL (130-400) 08/20/18 14:13 MPV 8.3 fL (7.2-11.7) 08/20/18 14:13 Neut % (Auto) 57.7 % (50.0-75.0) 08/20/18 14:13 Lymph % (Auto) 27.3 % (20.0-40.0) 08/20/18 14:13 [place] % (Auto) 7.8 % (0.0-10.0) 08/20/18 14:13 Eos % (Auto) 6.0 % (0.0-4.0) H 08/20/18 14:13 Baso % (Auto) 1.2 % (0.0-2.0) 08/20/18 14:13 Neut # (Auto) 4.5 K/uL (1.8-7.0) 08/20/18 14:13 Lymph # (Auto) 2.1 K/uL (1.0-4.3) 08/20/18 14:13 [place] # (Auto) 0.6 K/uL (0.0-0.8) 08/20/18 14:13 Eos # (Auto) 0.5 K/uL (0.0-0.7) 08/20/18 14:13 Baso # (Auto) 0.1 K/uL (0.0-0.2) 08/20/18 14:13 PT 14.6 SECONDS (9.7-12.2) H 08/16/18 16:50 INR 1.3 08/16/18 16:50 APTT 35 SECONDS (21-34) H 08/16/18 16:50 Sodium 135 mmol/L (132-148) 08/20/18 14:13 Potassium 4.1 mmol/L (3.6-5.2) 08/20/18 14:13 Chloride 98 mmol/L (98-107) 08/20/18 14:13 Carbon Dioxide 28 mmol/L (22-30) 08/20/18 14:13 Anion Gap 14 (10-20) 08/20/18 14:13 BUN 21 mg/dL (9-20) H 08/20/18 14:13 Creatinine 1.1 mg/dL (0.8-1.5) 08/20/18 14:13 Est GFR ( Amer) > 60 08/20/18 14:13 Est GFR (Non-Af Amer) > 60 08/20/18 14:13 POC Glucose (mg/dL) 86 mg/dL (65-110) 08/20/18 11:23 Random Glucose 136 mg/dL (75-110) H 08/20/18 14:13 Calcium 8.6 mg/dl (8.6-10.4) 08/20/18 14:13 Phosphorus 3.5 mg/dL (2.5-4.5) 08/16/18 17:33 Magnesium 2.0 mg/dL (1.6-2.3) 08/16/18 17:33 Total Bilirubin 0.5 mg/dL (0.2-1.3) 08/18/18 08:10 AST 50 U/L (17-59) 08/18/18 08:10 ALT 24 U/L (21-72) 08/18/18 08:10 Alkaline Phosphatase 42 U/L (38-126) 08/18/18 08:10 Total Creatine Kinase 98 U/L (55-170) 08/16/18 19:48 CK-MB (Mass) 0.55 ng/mL (0.0-3.38) 08/16/18 19:48 Troponin I 0.0120 ng/mL (0.00-0.120) 08/16/18 19:48 Total Protein 6.4 g/dL (6.3-8.3) 08/18/18 08:10 Albumin 3.4 g/dL (3.5-5.0) L 08/18/18 08:10 Globulin 3.0 gm/dL (2.2-3.9) 08/18/18 08:10 Albumin/Globulin Ratio 1.1 (1.0-2.1) 08/18/18 08:10 Fluid Source Pleural/thoracentesi 08/17/18 17:58 Fluid Appearance Cloudy (CLEAR) 08/17/18 17:58 Fluid WBC 513.0 /mm3 (0.0-300.0) H 08/17/18 17:58 Fluid RBC 4446.0 /mm3 (0.0-0.0) H 08/17/18 17:58 Fluid Tot Cell Count TEST NOT PERFORMED 08/17/18 17:58 Fluid Neutrophils 9.0 % (0-0) H 08/17/18 17:58 Fluid Lymphocytes 86.0 % (0-0) H 08/17/18 17:58 Fld Monocyte/Macrophag 5 % (0-0) H 08/17/18 17:58 Fluid Comment 08/17/18 17:58 Discharge Exam - Head Exam Head Exam: ATRAUMATIC, NORMOCEPHALIC Discharge Plan - Discharge Medications Prescriptions: Promethazine/Codeine [Codeine/Promethazine 10 MG/5 Ml-6.25 MG/5 Ml] 5 ml PO Q6 PRN #120 ml PRN Reason: Cough - Follow Up Plan Condition: GOOD Disposition: HOME/ ROUTINE Instructions: Heart Healthy Diet, Diabetes Exchange Diet, Heart Failure, Adult (DC), Diabetes Diet , Pleural Effusion (DC), Promethazine and Codeine, Thoracentesis (DC) Additional Instructions: Please follow up with Dr. Adrian Topete office in 1 week Please follow up with Dr. Espinoza office in 1-2 weeks - call and make appointment continue medication as per med. rec. Referrals: Prince Espinoza MD [Staff Provider] -
--- NOTE | 2018-08-22 03:16 | DS ---
DISCHARGE DIAGNOSES: Bilateral pleural effusion due to chemotherapeutic agent, diabetes, sleep apnea, hypertension, and morbid obesity. HISTORY OF PRESENT ILLNESS: This is a 63-year-old male with history of type 2 diabetes, hypertension, hyperlipidemia, sleep apnea, and morbid obesity, who came in because of shortness of breath. He was found to have bilateral pleural effusion. He went for thoracentesis, and he was found to have a chemotherapy-induced pleural effusion with shortness of breath, and chemotherapeutic agent has been stopped for 1 month. Presently, he is feeling better, he is for discharge. He is stable. PHYSICAL EXAMINATION: VITAL SIGNS: Blood pressure 127/73, pulse rate 82, respiratory rate 20, and temperature 97.8. LABORATORY DATA: WBC 7.7, hemoglobin 11.4, and hematocrit 33.8, platelets 341. Sodium 135, potassium 4.1, chloride 98, bicarb 28, BUN 21, and creatinine 1.1. CONDITION UPON DISCHARGE: Stable. Salvatore Ferro MD
--- NOTE | 2018-08-22 22:25 | CARD ---
APPROVED REPORT Date of service: 08/16/2018 EKG Measurement Heart [id number] <Conclusion> Normal sinus rhythm Normal ECG
== END 2018-08-20 16:13 | disposition home or self-care (01) | DRG 187 ==
LOC: C.ER 15:50 → C.6T 17:57
PROVIDERS: ADMIT Internal Medicine; ATTEND Internal Medicine
PROC: 0W993ZZ Drainage of Right Pleural Cavity, Percutaneous Approach (ICD-10-PCS; principal; 2018-08-19)
PROC: BB4BZZZ Ultrasonography of Pleura (ICD-10-PCS; 2018-08-19)
DX: J90 Pleural effusion, not elsewhere classified (principal); C92.10 Chronic myeloid leukemia, BCR/ABL-positive, not having achieved remission; I10 Essential (primary) hypertension; E11.9 Type 2 diabetes mellitus without complications; G47.33 Obstructive sleep apnea (adult) (pediatric); T45.1X5A Adverse effect of antineoplastic and immunosuppressive drugs, initial encounter; I51.7 Cardiomegaly; E66.01 Morbid (severe) obesity due to excess calories; Z68.37 Body mass index [BMI] 37.0-37.9, adult